=== PATIENT | female | born 1935 | race Caucasian/White ===

== ENCOUNTER 2017-12-07 12:55 | Outpatient (CLI) | payer MEDICARE ==
[2017-12-07 15:22] LABS: Bilirubin Negative (Negative); Blood, Urine Negative (Negative); Clarity CLEAR (Clear); Glucose, Urine (Dipstick) Negative (Negative); Leukocyte Negative (Negative); Nitrite Negative (Negative); Protein, Urine (Dipstick) Negative (Neg-Trace); Specific Gravity, Urine 1.011 (1.002-1.036); Urobilinogen 0.2 mg/dL (0.2-1.0); pH, Urine 6.5 (5.0-9.0)
[2017-12-07 15:25] LABS: Bacteria/HPF None Seen HPF (None Seen); Hyaline Casts/LPF 0-3 HYALINE CAST LPF (0-3 Hyaline); RBC/HPF 0-3 HPF (0-3); Squamous Epithelial 0-3 HPF (0-3); WBC/HPF 0-3 HPF (0-3)
== END 2017-12-07 12:56 | disposition home or self-care (01) ==
LOC: LABBT 12:55
PROVIDERS: ATTEND Orthopaedic Surgery
DX: Z01.818 Encounter for other preprocedural examination (principal); M17.11 Unilateral primary osteoarthritis, right knee
CPT/HCPCS: 81001; 87081; 87086; 93005; 93010

== ENCOUNTER 2017-12-13 10:26 | Outpatient (CLI) | payer MEDICARE ==
[2017-12-13 12:22] LABS: #Eosinphils 0.1 thou/uL (0.0-0.7); #Lymphocytes 2.2 thou/uL (1.20-3.40); #Monocytes 0.4 thou/uL (0.11-0.59); #Neutrophils 3.3 thou/uL (1.40-6.50); %Basophils 0.4 % (0.0-1.0); %Eosinophils 1.1 % (0.0-10.0); %Monocytes 6.9 % (0.0-10.0); %Neutrophils 54.6 % (42.0-75.0); Hemoglobin 12.4 g/dL (12.0-16.0); Mean Corpuscular Hemoglobin 30.5 pg (27.0-31.0); Mean Corpuscular Volume 92.5 fL (78.0-98.0); Mean Platelet Volume 7.7 fL (7.4-10.4); Platelet Count 311 thou/uL (130-400); RBC Distribution Width 12.2 % (11.5-14.5); Red Blood Cell (RBC) Count 4.05 mill/uL (4.20-5.40)
[2017-12-13 12:29] LABS: Prothrombin Time 12.9 SEC (12.0-14.7)
[2017-12-13 12:34] LABS: Anion Gap 14 mmol/L (10-20); BUN (Urea Nitrogen) 23 mg/dL (9.8-20.1); Calc. Creatinine Clearance 0 mL/min (70-130); Calcium 9.8 mg/dL (7.8-10.44); Carbon Dioxide 27 mmol/L (23-31); Chloride 102 mmol/L (98-107); Estimated GFR-MDRD 72; Glucose 181 mg/dL (83-110); Potassium 3.4 mmol/L (3.5-5.1); Sodium 140 mmol/L (136-145)
== END 2017-12-13 10:27 | disposition home or self-care (01) ==
LOC: LABBT 10:26
PROVIDERS: ATTEND Orthopaedic Surgery
DX: Z01.818 Encounter for other preprocedural examination (principal); M17.11 Unilateral primary osteoarthritis, right knee
CPT/HCPCS: 80048; 85025; 85610; 86850; 86870; 86900; 86901

== ENCOUNTER 2017-12-18 06:29 | Inpatient (IN) | payer MEDICARE ==
[2017-12-07 13:19] VITALS: BMI 29.2
--- NOTE | 2017-12-14 00:54 | HP ---
HISTORY OF PRESENT ILLNESS: The patient is an 82-year-old female with a long history of progressive degenerative arthritis of both knees, left much greater than right, unresponsive to conservative colton tment including rest, restriction of activities, anti-inflammatory medications, previous cortisone in jections. Pain is now interfering with day to day activities, including walking, getting dressed, an d sleeping. PAST MEDICAL HISTORY: Patient has history of hypertension, diabetes, urinary frequency, depression a nd previous carpal tunnel release. She has also had previous hysterectomy and previous back surgery. ALLERGIES: She is allergic to STATIN DRUGS. FAMILY HISTORY: Otherwise unremarkable. SOCIAL HISTORY: Otherwise unremarkable. REVIEW OF SYSTEMS: Otherwise unremarkable. CURRENT MEDICATIONS: Hydrochlorothiazide, amlodipine, hydrocodone, losartan, escitalopram, cyclobenz aprine, Zofran, iron, metformin and eszopiclone. PHYSICAL EXAMINATION: GENERAL: This is an elderly short-statured female in no acute distress. HEENT: Unremarkable. NECK: Supple. CHEST: Clear. HEART: Regular rate and rhythm. ABDOMEN: Soft, nontender. PELVIC/RECTAL/BREAST: Deferred. EXTREMITIES: Pertinent findings related to left knee, there is puffiness but no effusion. There is mild varus. There is tenderness and crepitus over the medial joint line. There is a left antalgic g ait. Pulses are 1+. Neurovascular exam is intact. Range of motion is 0-120 degrees. LABORATORY AND X-RAY FINDINGS: X-rays of the left knee reveal bone on bone collapse immediately with progression from previous x-rays. There are similar findings on the right knee, but not as severe. IMPRESSION: 1. Degenerative arthritis, both knees, left greater than right. 2. Adult-onset diabetes. 3. Hypertension. PLAN: Left total knee replacement. The nature of the surgery, length of recovery, and potential com plications such as infection, loss of motion, incomplete relief, delayed wound healing, neurovascular injury, thromboembolic phenomena, possible transfusion, and need for revision have been discussed in detail.
[2017-12-18] MEDS ORDERED: Fentanyl 100 MCG/2 ML VIAL ONE ×5 (07:23→14:14)
[2017-12-18] MEDS ORDERED: Midazolam HCl 2 mg/2 ml Vial ONE (07:23)
[2017-12-18] MEDS ORDERED: Ropivacaine 0.2% HCl/PF 20 ML ONE (07:23)
[2017-12-18] MEDS ORDERED: Sodium Chloride 0.9% 100 ML ONE (07:37)
[2017-12-18] MEDS ORDERED: CEFAZOLIN/Water 2 GM/20 ML SYRINGE ONE (07:38)
[2017-12-18] MEDS ORDERED: traMADol HCl 50 MG TAB PO PRN ×3 (08:19→14:59)
[2017-12-18] MEDS ORDERED: Ondansetron HCl/PF 4 MG/2 ML Vial IVP PRN ×3 (08:19→14:00)
[2017-12-18] MEDS ORDERED: Promethazine HCl 25 MG/ML VIAL IM PRN ×3 (08:19→14:00)
[2017-12-18] MEDS ORDERED: HYDROcodone/Acetaminophen 10/325 mg Tablet PO PRN ×4 (08:19→14:59)
[2017-12-18] MEDS ORDERED: Bupivacaine 0.5% 50 ML in Sodium Chloride 0.9% 50 ML NERVE BLCK SCH (08:19)
[2017-12-18] MEDS ORDERED: Zolpidem Tartrate 5 MG TAB PO PRN ×3 (08:19→14:59)
[2017-12-18] MEDS ORDERED: Fentanyl 100 MCG/2 ML VIAL IV PRN (08:20)
[2017-12-18] MEDS ORDERED: Bupivacaine HCl 0.25%/Epi 0.0005/PF 10 ML VIAL FS ONE (09:30)
[2017-12-18] MEDS ORDERED: Promethazine HCl 25 MG/ML VIAL SLOW IVP PRN ×2 (11:56→14:59)
[2017-12-18] MEDS ORDERED: Tranexamic Acid 1,000 MG in Sodium Chloride 0.9% 100 ML IVPB SCH ×2 (12:00→14:59)
[2017-12-18] MEDS ORDERED: Bupivacaine 0.5% 10 ML VIAL ONE (12:17)
--- NOTE | 2017-12-18 12:27 | OP ---
DATE OF PROCEDURE: 12/18/2017 SURGEON: Primitivo Cabrales M.D. BRUSH HOLDER ASSEMBLER: KAYKAY Titus. ANESTHESIA: General plus femoral sciatic nerve blocks. PREOPERATIVE DIAGNOSIS: Degenerative arthritis, left knee. POSTOPERATIVE DIAGNOSIS: Degenerative arthritis, left knee. PROCEDURES: Left total knee replacement was with computer-assisted navigation with cemented WhiteFence Triathlon components (#3 femoral component, #3 universal tibial baseplate with 11 mm CS plastic inser t, and A29 all plastic patellar component). NARRATIVE REPORT: After satisfactory anesthesia was induced in supine position, sequential compressi on device was placed on the non-operative leg throughout the procedure. The left leg was then preppe d and draped in routine sterile fashion. The left leg was elevated, exsanguinated with an Esmarch ba ndage, and the tourniquet inflated to 250 mmHg. A gently curved medial parapatellar incision was mad e, carried down to subcutaneous tissues. Bleeding points controlled with cautery. After 2-3 minutes it appeared that the tourniquet pressure was not adequate cause of bleeding and the tourniquet was r eleased. The leg re-exsanguinated and the tourniquet reinflated to 300 mmHg. Medial parapatellar ar throtomy was performed, patella dislocated laterally. Portions of fat pad were excised for exposure. There was marked degenerative arthritis of the knee, especially medially, with large areas of expos ed bone. Meniscal remnants and osteophytes were removed. Using the WhiteFence pinless navigation [place] m and the appropriate guides, the distal femoral and proximal tibial articular surfaces were excised to accept the trial components. It was felt that a #3 femoral component, #3 universal tibial basepla te with 11 mm CS plastic insert gave appropriate size, fit, stability, and correction of the preopera tive deformity. The trial components were removed. The knee was copiously irrigated with pulsatile lavage and bony surfaces thoroughly cleaned and dried. The permanent components were then cemented i n a single stage using 1 package of cement premixed with 1 gram of tobramycin powder. Excess cement was removed. There was again good fit and stability of the components. The knee was copiously irrig ated. The medial retinaculum and quadriceps mechanism was closed with interrupted #2 Vicryl and a ru nning #2 Quill. Subcutaneous tissues were closed with a running 0 Quill suture and the skin closed w ith running subcuticular 3-0 Monoderm and SurgiSeal skin adhesive. Sterile bulky compressive dressin g was applied and the tourniquet released after total time of 76 minutes. The foot promptly pinked u p. Sequential compression device was placed on the operated leg and she was awakened, taken to recov clair room in stable condition. There were no apparent intraoperative complications. The estimated bl ood loss was less than 100 mL.
[2017-12-18] MEDS ORDERED: Ketorolac Tromethamine 30 MG/ML VIAL ONE (13:02)
[2017-12-18] MEDS ORDERED: Ropivacaine 0.5% HCl/PF (150 MG/30 ML VIAL) ONE (13:27)
[2017-12-18] MEDS ORDERED: Ketorolac Tromethamine 30 MG/ML VIAL IVP SCH ×2 (13:30→14:59)
[2017-12-18] MEDS ORDERED: Naloxone HCl 0.4 mg/ml Vial IV PRN (14:00)
[2017-12-18] MEDS ORDERED: fentaNYL Citrate/PF 2,000 MCG in Sodium Chloride 0.9% 60 ML IV PRN (14:00)
[2017-12-18] MEDS ORDERED: diphenhydrAMINE 50 MG/ML VIAL IM/IV PRN (14:00)
[2017-12-18] MEDS ORDERED: diphenhydrAMINE 25 MG CAP PO PRN ×2 (14:00→14:59)
--- NOTE | 2017-12-18 14:14 | RAD ---
2 VIEWS LEFT KNEE: Date: 12/18/17 COMPARISON: None. HISTORY: Evaluate knee following total knee arthroplasty. FINDINGS: There is postoperative gas and fluid in the suprapatellar bursa and anterior to the distal left femur and proximal left tibia. There is a total knee arthroplasty present. No evidence for acute fracture or dislocation. No hardware failure. IMPRESSION: Evidence of recent left total knee arthroplasty. POS: [facility]
[2017-12-18] MEDS ORDERED: Loperamide HCl 2 MG CAP PO PRN (14:56)
[2017-12-18] MEDS ORDERED: Chloraseptic Spray 180 ml Bottle PO PRN (14:56)
[2017-12-18] MEDS ORDERED: Artificial Tears 18 DROP/0.9 ML EA EYE PRN (14:56)
[2017-12-18] MEDS ORDERED: Diabetic Tussin 200 MG/10 ML UDCUP PO PRN (14:56)
[2017-12-18] MEDS ORDERED: Famotidine 20 MG TAB PO PRN (14:56)
[2017-12-18] MEDS ORDERED: Milk Of Magnesia 30 ML UDCUP PO PRN (14:56)
[2017-12-18] MEDS ORDERED: Eucerin (Mineral Oil/Petrolatum,White) 30 gm Jar TOP PRN (14:56)
[2017-12-18] MEDS ORDERED: Mag-Al 1200 mg/1200 mg/30 ML UDCUP PO PRN (14:56)
[2017-12-18] MEDS ORDERED: hydrALAZINE 20 MG/ML VIAL SLOW IVP PRN (14:56)
[2017-12-18] MEDS ORDERED: Senokot 8.6 MG TAB PO PRN (14:56)
[2017-12-18] MEDS ORDERED: HumaLOG 300 UNITS/3 ML VIAL SC PRN ×2 (14:57)
[2017-12-18] MEDS ORDERED: Dextrose 50% Abboject 50 ML SYRINGE SLOW IVP PRN (14:57)
[2017-12-18] MEDS ORDERED: Dextrose 5% in Water 1,000 ML IV PRN (14:57)
[2017-12-18] MEDS ORDERED: Vancomycin HCl 1 GM in Premix Bag 1 BAG IVPB SCH ×2 (14:59→20:00)
[2017-12-18] MEDS ORDERED: Cyclobenzaprine 10 MG TAB PO PRN (14:59)
[2017-12-18] MEDS ORDERED: Fentanyl 100 MCG/2 ML VIAL SLOW IVP PRN ×2 (14:59)
[2017-12-18] MEDS ORDERED: Lidocaine 1% PF 5 ML VIAL ONE (15:01)
[2017-12-18] MEDS ORDERED: Ondansetron HCl/PF 4 MG/2 ML Vial ONE (15:01)
[2017-12-18] MEDS ORDERED: PROPOFOL 200 MG/20 ML VIAL ONE (15:01)
--- NOTE | 2017-12-18 15:02 | PDOC.PN ---
- Subjective Encounter Start Date: 12/18/17 Encounter Start Time: 14:00 -: old records requested/rev Patient seen and examined. her pain is not well controlled, she is on SURGICAL CONSULTANT. No overnight events - Objective Resuscitation Status: Resuscitation Status FULL:Full Resuscitation MAR Reviewed: Yes Vital Signs & Weight: Weight Weight 145 lb Additional Labs: Accuchecks 12/18/17 08:28 POC Glucose 134 H Radiology Reviewed by me: Yes (knee xray) Phys Exam - Physical Examination Constitutional: NAD HEENT: PERRLA, moist MMs, sclera anicteric Neck: no JVD, supple Respiratory: no wheezing, no rales, no rhonchi Cardiovascular: RRR, no significant murmur, no rub Gastrointestinal: soft, non-tender, no distention, positive bowel sounds Musculoskeletal: no edema, pulses present LEFT KNEE WITH DRESSING, NERVE BLOCK+ Neurological: non-focal, normal sensation, moves all 4 limbs Lymphatic: no nodes Psychiatric: normal affect, A&O x 3 Skin: no rash, normal turgor Dx/Plan (1) Status post total left knee replacement Code(s): Z96.652 - PRESENCE OF LEFT ARTIFICIAL KNEE JOINT Status: Acute (2) Diabetes type 2, controlled Code(s): E11.9 - TYPE 2 DIABETES MELLITUS WITHOUT COMPLICATIONS Status: Chronic (3) GERD (gastroesophageal reflux disease) Code(s): K21.9 - GASTRO-ESOPHAGEAL REFLUX DISEASE WITHOUT ESOPHAGITIS Status: Chronic (4) Hypertension Code(s): I10 - ESSENTIAL (PRIMARY) HYPERTENSION Status: Chronic (5) Osteoarthritis Code(s): M19.90 - UNSPECIFIED OSTEOARTHRITIS, UNSPECIFIED SITE Status: Chronic - Plan cont current plan of care, plan discussed w/ family, PT/OT * continue nerve block as per anesthesia * pain control with pain meds * continue PT[facility] * selected home medication reconciled * aspirin for DVT prophylaxis * protonix for GI prophylaxis. * code status- Full code * medication reviewed as below * symptomatic treatment * will monitor medical problems * hyperglycemia protocol orders * continue SURGICAL CONSULTANT Review of Systems - Review of Systems Eyes: negative: Pain, Vision Change, Conjunctivae Inflammation, Eyelid Inflammation, Redness, Other ENT: negative: Ear Pain, Ear Discharge, Nose Pain, Nose Discharge, Nose Congestion, Mouth Pain, Mouth Swelling, Throat Pain, Throat Swelling, Other Respiratory: negative: Cough, Dry, Shortness of Breath, Hemoptysis, SOB with Excertion, Pleuritic Pain, Sputum, Wheezing Cardiovascular: negative: chest pain, palpitations, orthopnea, paroxysmal nocturnal dyspnea, edema, light headedness, other Gastrointestinal: negative: Nausea, Vomiting, Abdominal Pain, Diarrhea, Constipation, Melena, Hematochezia, Other Genitourinary: negative: Dysuria, Frequency, Incontinence, Hematuria, Retention , Other Musculoskeletal: negative: Neck Pain, Shoulder Pain, Arm Pain, Back Pain, Hand Pain, Leg Pain, Foot Pain, Other Skin: negative: Rash, Lesions, Pb, Bruising, Other - Medications/Allergies Allergies/Adverse Reactions: Allergies Allergy/AdvReac Type Severity Reaction Status Date / Time sertraline Allergy Nausea Verified 12/07/17 13:20 Medications: Current Medications Acetaminophen (Tylenol) 650 mg PO Q4H PRN PRN Reason: Headache/Fever or Mild Pain Acetaminophen (Tylenol) 650 mg PO Q4H PRN PRN Reason: DELUNA/ T > 101F; Mild Pain (1-3) Hydrocodone Bitart/Acetaminophen ([place] 10/325) 1 tab PO Q4H PRN PRN Reason: Moderate Pain (4-6) Hydrocodone Bitart/Acetaminophen ([place] 10/325) 2 tab PO Q4H PRN PRN Reason: Severe Pain (7-10) Al Hydroxide/Mg Hydroxide (Maalox) 15 ml PO Q4H PRN PRN Reason: Heartburn or Indigestion Amlodipine Besylate (Norvasc) 5 mg PO DAILY [facility] Artificial Tears (Tears Naturale) 0 drop EA EYE PRN PRN PRN Reason: Dry Eyes Aspirin (Ecotrin) 81 mg PO BID [facility] Cefazolin Sodium (Ancef) 2 gm SLOW IVP Q8H [facility] Stop: 12/18/17 23:00 Cyclobenzaprine HCl (Flexeril) 5 mg PO PRN PRN PRN Reason: Muscle Spasm Dextrose/Water (Dextrose 50%) 25 gm SLOW IVP PRN PRN PRN Reason: Hypoglycemia Diphenhydramine HCl (Benadryl) 25 mg IM/IV Q3H PRN PRN Reason: Itching Diphenhydramine HCl (Benadryl) 25 mg PO Q3H PRN PRN Reason: Itching Diphenhydramine HCl (Benadryl) 25 mg PO Q6H PRN PRN Reason: Itching Famotidine (Pepcid) 20 mg PO BIDPRN PRN PRN Reason: Heartburn or Indigestion Fentanyl (Sublimaze) 50 mcg SLOW IVP Q30MIN PRN PRN Reason: Moderate Pain (4-6) Fentanyl (Sublimaze) 100 mcg SLOW IVP Q1H PRN PRN Reason: Severe Pain (7-10) Ferrous Gluconate (Fergon) 324 mg PO BID [facility] Glucagon (Glucagon) 1 mg IM PRN PRN PRN Reason: Hypoglycemia Guaifenesin (Robitussin Sf) 200 mg PO Q4H PRN PRN Reason: Cough Hydralazine HCl (Apresoline) 10 mg SLOW IVP Q4H PRN PRN Reason: Systolic BP > 180 Hydrochlorothiazide (Hydrochlorothiazide) 25 mg PO DAILY [facility] Fentanyl Citrate 2,000 mcg/ (Sodium Chloride) 100 mls @ 0 mls/hr IV INF PRN; As Directed PRN Reason: Pain Acetaminophen 1,000 mg/ Device 100 mls @ 400 mls/hr IVPB Q6HR [facility] Stop: 12/19/17 18:01 Dextrose/Water (D5w) 1,000 mls @ 0 mls/hr IV .Q0M PRN; As Directed PRN Reason: Hypoglycemia Sodium Chloride (Normal Saline 0.9%) 1,000 mls @ 100 mls/hr IV .Q10H [facility] Tranexamic Acid 1,000 mg/ (Sodium Chloride) 110 mls @ 200 mls/hr IVPB ONE [facility] Vancomycin HCl 1 gm/ Device 200 mls @ 200 mls/hr IVPB ONE [facility] Stop: 12/18/17 15:58 Insulin Human Lispro (Humalog) 0 units SC .MODERATE SLIDING SC PRN PRN Reason: Moderate Correctional Scale Insulin Human Lispro (Humalog) 0 units SC .BEDTIME SLIDING SC PRN PRN Reason: Bedtime Correctional Scale Iron/Minerals/Multivitamins (Theragran M) 1 tab PO DAILY [facility] Ketorolac Tromethamine (Toradol) 15 mg IVP Q6H PRN PRN Reason: Mild-Moderate Pain (1-5) Stop: 12/23/17 19:01 Ketorolac Tromethamine (Toradol) 15 mg IVP NOW [facility] Stop: 12/18/17 15:30 Ketorolac Tromethamine (Toradol) 15 mg IVP Q8HR [facility] Stop: 12/20/17 15:00 Loperamide HCl (Imodium) 2 mg PO PRN PRN PRN Reason: Diarrhea/Loose Stools Magnesium Hydroxide (Milk Of Magnesium) 30 ml PO DAILYPRN PRN PRN Reason: Constipation Metformin HCl (Glucophage) 500 mg PO BID-WM [facility] Mineral Oil/White Petrolatum (Eucerin Cream) 0 gm TOP BIDPRN PRN PRN Reason: Dry Skin Naloxone HCl (Narcan) 0.2 mg IV Q5MIN PRN PRN Reason: RR <8 or pt obtun/unarousable Non-Formulary Medication (Losartan Potassium [Cozaar]) 50 mg PO HS [facility] Non-Formulary Medication (Omeprazole [Omeprazole]) 40 mg PO DAILY [facility] Ondansetron HCl (Zofran) 4 mg IVP Q6H PRN PRN Reason: Nausea/Vomiting Ondansetron HCl (Zofran) 4 mg IVP Q6H PRN PRN Reason: Nausea/Vomiting Phenol (Chloraseptic [place] 180 Ml Bot) 0 ml PO PRN PRN PRN Reason: Sore Throat Promethazine HCl (Phenergan) 12.5 mg IM Q4H PRN PRN Reason: Nausea/Vomiting Promethazine HCl (Phenergan) 12.5 mg SLOW IVP Q4H PRN PRN Reason: Nausea/Vomiting Senna (Senokot) 2 tab PO HSPRN PRN PRN Reason: Constipation Senna/Docusate Sodium (Senokot S) 2 tab PO BID [facility] Sodium Chloride (Flush - Normal Saline) 10 ml IVF PRN PRN PRN Reason: Saline Flush Tramadol HCl (Ultram) 100 mg PO Q6H PRN PRN Reason: Mild Pain (1-3) Zolpidem Tartrate (Ambien) 5 mg PO HSPRN PRN PRN Reason: Insomnia Zolpidem Tartrate (Ambien) 5 mg PO HSPRN PRN PRN Reason: Insomnia History of Present Illnes - History of Present Illness Reason for Visit: medical management History of Present Illness: left total knee replacement - Past Medical History Cardiac: HTN Gastrointestinal: GERD Musculoskeletal: Chronic low back pain, Osteoarthritis Endocrine: Diabetes - Past Surgical History Past Surgical History: Appendectomy, Breast Biopsy, Cataract Removal, Total Knee Replacement - Past Family History Family History: None - Past Social History Smoke: No Alcohol: None Drugs: None Lives: With Family
[2017-12-18] MEDS ORDERED: Hydrochlorothiazide 25 MG TAB PO SCH (15:45)
[2017-12-18] MEDS ORDERED: Aspirin 81 mg Enteric Coated Tablet PO SCH (15:45)
[2017-12-18] MEDS ORDERED: Amlodipine 5 MG TAB PO SCH (15:45)
[2017-12-18] MEDS: Sodium Chloride 0.9% 1,000 ML IV SCH ×2 (15:52→23:05)
[2017-12-18] MEDS: metFORMIN 500 MG TAB PO SCH (17:27)
[2017-12-18] MEDS: Acetaminophen 1,000 MG in Premix Bag 1 BAG IVPB SCH ×2 (18:55→23:05)
[2017-12-18] MEDS: CEFAZOLIN/Water 2 GM/20 ML SYRINGE SLOW IVP SCH (18:55)
[2017-12-18] MEDS ORDERED: Ketorolac Tromethamine 30 MG/ML VIAL IVP PRN (19:00)
[2017-12-18] MEDS: Aspirin 81 mg Enteric Coated Tablet PO SCH (20:33)
[2017-12-18] MEDS: Ondansetron HCl/PF 4 MG/2 ML Vial IVP PRN (20:34)
[2017-12-18] MEDS: Losartan 25 MG TAB PO SCH (20:34)
[2017-12-19] MEDS: CEFAZOLIN/Water 2 GM/20 ML SYRINGE SLOW IVP SCH (02:03)
[2017-12-19] MEDS: Acetaminophen 1,000 MG in Premix Bag 1 BAG IVPB SCH ×3 (05:02→19:10)
[2017-12-19 06:37] LABS: Hemoglobin 10.7 g/dL (12.0-16.0); Mean Corpuscular HGB CONC 35.2 g/dL (32.0-36.0); Mean Corpuscular Hemoglobin 32.3 pg (27.0-31.0); Mean Corpuscular Volume 91.7 fL (78.0-98.0); Mean Platelet Volume 7.4 fL (7.4-10.4); Platelet Count 305 thou/uL (130-400); RBC Distribution Width 11.9 % (11.5-14.5); Red Blood Cell (RBC) Count 3.32 mill/uL (4.20-5.40); White Blood Cell (WBC) Count 9.8 thou/uL (4.8-10.8)
[2017-12-19] MEDS ORDERED: Calcium Carbonate 500 MG ChewTAB PO PRN (08:13)
[2017-12-19] MEDS: metFORMIN 500 MG TAB PO SCH ×2 (08:51→19:11)
[2017-12-19] MEDS: Ferrous Gluconate 324 MG TAB PO SCH ×2 (08:55→19:11)
[2017-12-19] MEDS: Ondansetron HCl/PF 4 MG/2 ML Vial IVP PRN (08:57)
[2017-12-19] MEDS: Aspirin 81 mg Enteric Coated Tablet PO SCH ×2 (09:05→20:29)
[2017-12-19] MEDS: Multivitamin W/ Minerals 1 TAB PO SCH (09:06)
[2017-12-19] MEDS: Senokot S 8.6-50 MG TAB PO SCH ×2 (09:06→20:30)
[2017-12-19] MEDS: Amlodipine 5 MG TAB PO SCH (09:06)
[2017-12-19] MEDS: Hydrochlorothiazide 25 MG TAB PO SCH (09:06)
[2017-12-19] MEDS: Sodium Chloride 0.9% 1,000 ML IV SCH ×2 (09:15→20:33)
[2017-12-19] MEDS: Bupivacaine 0.5% 50 ML in Sodium Chloride 0.9% 50 ML NERVE BLCK SCH ×2 (10:52→23:37)
--- NOTE | 2017-12-19 11:11 | PDOC.PN ---
- Subjective Encounter Start Date: 12/19/17 Encounter Start Time: 07:20 Patient seen and examined for medical problem, her pain is controlled with CLINICAL ESTHETICIAN. No overnight events - Objective Resuscitation Status: Resuscitation Status FULL:Full Resuscitation MAR Reviewed: Yes Vital Signs & Weight: Vital Signs (12 hours) Temp Pulse Resp BP Pulse Ox 12/19/17 09:06 92 12/19/17 07:56 98.8 F 92 18 94 L 12/19/17 04:00 98.8 F 92 18 128/66 94 L 12/18/17 23:28 98.3 F 80 16 121/71 93 L Weight Weight 145 lb I&O: 12/18/17 12/19/17 12/20/17 06:59 06:59 06:59 Intake Total 2190 Output Total 2950 Balance -760 Result Diagrams: 12/19/17 05:58 Additional Labs: Accuchecks 12/19/17 12/18/17 06:36 15:44 POC Glucose 146 H 164 H Phys Exam - Physical Examination Constitutional: NAD HEENT: PERRLA, moist MMs, sclera anicteric Neck: no JVD, supple Respiratory: no wheezing, no rales, no rhonchi Cardiovascular: RRR, no significant murmur, no rub Gastrointestinal: soft, non-tender, no distention, positive bowel sounds Musculoskeletal: no edema, pulses present left knee with dressing, nerve block Neurological: non-focal, normal sensation Lymphatic: no nodes Psychiatric: normal affect, A&O x 3 Skin: no rash, normal turgor Dx/Plan (1) Status post total left knee replacement Code(s): Z96.652 - PRESENCE OF LEFT ARTIFICIAL KNEE JOINT Status: Acute (2) Diabetes type 2, controlled Code(s): E11.9 - TYPE 2 DIABETES MELLITUS WITHOUT COMPLICATIONS Status: Chronic (3) GERD (gastroesophageal reflux disease) Code(s): K21.9 - GASTRO-ESOPHAGEAL REFLUX DISEASE WITHOUT ESOPHAGITIS Status: Chronic (4) Hypertension Code(s): I10 - ESSENTIAL (PRIMARY) HYPERTENSION Status: Chronic (5) Osteoarthritis Code(s): M19.90 - UNSPECIFIED OSTEOARTHRITIS, UNSPECIFIED SITE Status: Chronic - Plan cont current plan of care, plan discussed w/ family, PT/OT * continue nerve block as per anesthesia * pain control with pain meds and transportation agent * continue PT/OT as per [facility] protocol treatment * aspirin for DVT prophylaxis * protonix as needed for GI prophylaxis. * medication reviewed as below * symptomatic treatment * medical problems are stable * discharge per primary team Review of Systems - Review of Systems Eyes: negative: Pain, Vision Change, Conjunctivae Inflammation, Eyelid Inflammation, Redness, Other ENT: negative: Ear Pain, Ear Discharge, Nose Pain, Nose Discharge, Nose Congestion, Mouth Pain, Mouth Swelling, Throat Pain, Throat Swelling, Other Respiratory: negative: Cough, Dry, Shortness of Breath, Hemoptysis, SOB with Excertion, Pleuritic Pain, Sputum, Wheezing Cardiovascular: negative: chest pain, palpitations, orthopnea, paroxysmal nocturnal dyspnea, edema, light headedness, other Gastrointestinal: negative: Nausea, Vomiting, Abdominal Pain, Diarrhea, Constipation, Melena, Hematochezia, Other Genitourinary: negative: Dysuria, Frequency, Incontinence, Hematuria, Retention , Other Musculoskeletal: negative: Neck Pain, Shoulder Pain, Arm Pain, Back Pain, Hand Pain, Leg Pain, Foot Pain, Other Skin: negative: Rash, Lesions, Pb, Bruising, Other - Medications/Allergies Allergies/Adverse Reactions: Allergies Allergy/AdvReac Type Severity Reaction Status Date / Time sertraline Allergy Nausea Verified 12/07/17 13:20 Medications: Current Medications Acetaminophen (Tylenol) 650 mg PO Q4H PRN PRN Reason: DELUNA/ T > 101F; Mild Pain (1-3) Al Hydroxide/Mg Hydroxide (Maalox) 15 ml PO Q4H PRN PRN Reason: Heartburn or Indigestion Amlodipine Besylate (Norvasc) 5 mg PO DAILY REPLACED [facility] Last Admin: 12/19/17 09:06 Dose: 5 mg Artificial Tears (Tears Naturale) 0 drop EA EYE PRN PRN PRN Reason: Dry Eyes Aspirin (Ecotrin) 81 mg PO BID [facility]PLACED BY [facility] Last Admin: 12/19/17 09:05 Dose: 81 mg Calcium Carbonate (Tums) 1,000 mg PO Q4H PRN PRN Reason: Heartburn or Indigestion Last Admin: 12/19/17 08:51 Dose: 1,000 mg Cyclobenzaprine HCl (Flexeril) 5 mg PO DAILYPRN PRN PRN Reason: Muscle Spasm Dextrose/Water (Dextrose 50%) 25 gm SLOW IVP PRN PRN PRN Reason: Hypoglycemia Diphenhydramine HCl (Benadryl) 25 mg IM/IV Q3H PRN PRN Reason: Itching Diphenhydramine HCl (Benadryl) 25 mg PO Q3H PRN PRN Reason: Itching Famotidine (Pepcid) 20 mg PO BIDPRN PRN PRN Reason: Heartburn or Indigestion Ferrous Gluconate (Fergon) 324 mg PO BID-[facility] Last Admin: 12/19/17 08:55 Dose: 324 mg Glucagon (Glucagon) 1 mg IM PRN PRN PRN Reason: Hypoglycemia Guaifenesin (Robitussin Sf) 200 mg PO Q4H PRN PRN Reason: Cough Hydralazine HCl (Apresoline) 10 mg SLOW IVP Q4H PRN PRN Reason: Systolic BP > 180 Hydrochlorothiazide (Hydrochlorothiazide) 25 mg PO DAILY REPLACED BY [facility] Last Admin: 12/19/17 09:06 Dose: 25 mg Fentanyl Citrate 2,000 mcg/ (Sodium Chloride) 100 mls @ 0 mls/hr IV INF PRN; As Directed PRN Reason: Pain Acetaminophen 1,000 mg/ Device 100 mls @ 400 mls/hr IVPB Q6HR REPLACED BY [facility] Stop: 12/19/17 18:01 Last Admin: 12/19/17 05:02 Dose: 100 mls Dextrose/Water (D5w) 1,000 mls @ 0 mls/hr IV .Q0M PRN; As Directed PRN Reason: Hypoglycemia Sodium Chloride (Normal Saline 0.9%) 1,000 mls @ 100 mls/hr IV .Q10H REPLACED BY [facility] Last Admin: 12/19/17 09:15 Dose: Not Given Bupivacaine HCl 50 ml/ Sodium (Chloride) 100 mls @ 0 mls/hr NERVE BLCK INF REPLACED BY [facility] PRN Reason: As Directed Last Admin: 12/19/17 10:52 Dose: 100 mls Insulin Human Lispro (Humalog) 0 units SC .MODERATE SLIDING SC PRN PRN Reason: Moderate Correctional Scale Insulin Human Lispro (Humalog) 0 units SC .BEDTIME SLIDING SC PRN PRN Reason: Bedtime Correctional Scale Iron/Minerals/Multivitamins (Theragran M) 1 tab PO DAILY [facility]PLACED [facility] Last Admin: 12/19/17 09:06 Dose: 1 tab Ketorolac Tromethamine (Toradol) 15 mg IVP Q6H PRN PRN Reason: Mild-Moderate Pain (1-5) Stop: 12/23/17 19:01 Loperamide HCl (Imodium) 2 mg PO PRN PRN PRN Reason: Diarrhea/Loose Stools Losartan Potassium (Cozaar) 50 mg PO [facility] Last Admin: 12/18/17 20:34 Dose: 50 mg Magnesium Hydroxide (Milk Of Magnesium) 30 ml PO DAILYPRN PRN PRN Reason: Constipation Metformin HCl (Glucophage) 500 mg PO BID-[facility] Last Admin: 12/19/17 08:51 Dose: 500 mg Mineral Oil/White Petrolatum (Eucerin Cream) 0 gm TOP BIDPRN PRN PRN Reason: Dry Skin Naloxone HCl (Narcan) 0.2 mg IV Q5MIN PRN PRN Reason: RR <8 or pt obtun/unarousable Ondansetron HCl (Zofran) 4 mg IVP Q6H PRN PRN Reason: Nausea/Vomiting Last Admin: 12/19/17 08:57 Dose: 4 mg Pantoprazole Sodium (Protonix) 40 mg PO DAILY REPLACED [facility] Last Admin: 12/19/17 08:52 Dose: 40 mg Phenol (Chloraseptic [place] 180 Ml Bot) 0 ml PO PRN PRN PRN Reason: Sore Throat Promethazine HCl (Phenergan) 12.5 mg IM Q4H PRN PRN Reason: Nausea/Vomiting Promethazine HCl (Phenergan) 12.5 mg SLOW IVP Q4H PRN PRN Reason: Nausea/Vomiting Senna (Senokot) 2 tab PO HSPRN PRN PRN Reason: Constipation Senna/Docusate Sodium (Senokot S) 2 tab PO BID REPLACED BY [facility] Last Admin: 12/19/17 09:06 Dose: 2 tab Sodium Chloride (Flush - Normal Saline) 10 ml IVF PRN PRN PRN Reason: Saline Flush Zolpidem Tartrate (Ambien) 5 mg PO HSPRN PRN PRN Reason: Insomnia
[2017-12-19] MEDS: Losartan 25 MG TAB PO SCH (20:29)
[2017-12-19] MEDS ORDERED: Acetaminophen 325 MG TAB PO PRN ×2 (23:59)
[2017-12-20] MEDS: Senokot S 8.6-50 MG TAB PO SCH ×2 (08:12→22:01)
[2017-12-20] MEDS: Aspirin 81 mg Enteric Coated Tablet PO SCH ×2 (08:13→22:00)
[2017-12-20] MEDS: metFORMIN 500 MG TAB PO SCH ×2 (08:14→19:43)
[2017-12-20] MEDS: Hydrochlorothiazide 25 MG TAB PO SCH (08:14)
[2017-12-20] MEDS: Amlodipine 5 MG TAB PO SCH (08:14)
[2017-12-20] MEDS: Ferrous Gluconate 324 MG TAB PO SCH ×2 (08:14→19:42)
[2017-12-20] MEDS: Sodium Chloride 0.9% 1,000 ML IV SCH ×2 (08:19→16:02)
[2017-12-20] MEDS: Multivitamin W/ Minerals 1 TAB PO SCH (08:25)
--- NOTE | 2017-12-20 10:10 | PDOC.PN ---
- Subjective Encounter Start Date: 12/20/17 Encounter Start Time: 07:50 Patient seen and examined. No new complaints. No overnight events pt has not significant progress after surgery, she prefers to go to rehab if qualify on [employer] for pain control - Objective Resuscitation Status: Resuscitation Status FULL:Full Resuscitation MAR Reviewed: Yes Vital Signs & Weight: Vital Signs (12 hours) Temp Pulse Resp BP BP Pulse Ox 12/20/17 08:24 98.2 F 97 16 149/84 H 94 L 12/20/17 08:14 85 12/20/17 04:40 98.7 F 85 18 163/64 H 92 L 12/19/17 23:45 98.4 F 93 16 133/68 93 L Weight Admit Weight 145 lb Weight 145 lb I&O: 12/19/17 12/20/17 12/21/17 06:59 06:59 06:59 Intake Total 2190 1960 Output Total 2950 1850 Balance -760 110 Result Diagrams: 12/19/17 05:58 Additional Labs: Accuchecks 12/20/17 12/19/17 12/19/17 06:11 21:08 16:10 POC Glucose 135 H 148 H 211 H 12/19/17 11:59 POC Glucose 150 H Phys Exam - Physical Examination Constitutional: NAD HEENT: PERRLA, moist MMs, sclera anicteric Neck: no JVD, supple Respiratory: no wheezing, no rales, no rhonchi Cardiovascular: RRR, no significant murmur, no rub Gastrointestinal: soft, non-tender, no distention, positive bowel sounds Musculoskeletal: no edema, pulses present left knee with dressing, nerve block+ Neurological: non-focal, normal sensation, moves all 4 limbs Psychiatric: normal affect, A&O x 3 Dx/Plan (1) Status post total left knee replacement Code(s): Z96.652 - PRESENCE OF LEFT ARTIFICIAL KNEE JOINT Status: Acute (2) Diabetes type 2, controlled Code(s): E11.9 - TYPE 2 DIABETES MELLITUS WITHOUT COMPLICATIONS Status: Chronic (3) GERD (gastroesophageal reflux disease) Code(s): K21.9 - GASTRO-ESOPHAGEAL REFLUX DISEASE WITHOUT ESOPHAGITIS Status: Chronic (4) Hypertension Code(s): I10 - ESSENTIAL (PRIMARY) HYPERTENSION Status: Chronic (5) Osteoarthritis Code(s): M19.90 - UNSPECIFIED OSTEOARTHRITIS, UNSPECIFIED SITE Status: Chronic - Plan cont current plan of care, plan discussed w/ family, PT/OT, manager social work * continue nerve block as per anesthesia * pain control with pain meds and investigations manager * continue PT/OT as per [facility] protocol treatment * aspirin for DVT prophylaxis * protonix as needed for GI prophylaxis. * medication reviewed as below * symptomatic treatment * medical problems are stable * discharge per primary team * may need rehab. Review of Systems - Review of Systems Eyes: negative: Pain, Vision Change, Conjunctivae Inflammation, Eyelid Inflammation, Redness, Other ENT: negative: Ear Pain, Ear Discharge, Nose Pain, Nose Discharge, Nose Congestion, Mouth Pain, Mouth Swelling, Throat Pain, Throat Swelling, Other Respiratory: negative: Cough, Dry, Shortness of Breath, Hemoptysis, SOB with Excertion, Pleuritic Pain, Sputum, Wheezing Cardiovascular: negative: chest pain, palpitations, orthopnea, paroxysmal nocturnal dyspnea, edema, light headedness, other Gastrointestinal: negative: Nausea, Vomiting, Abdominal Pain, Diarrhea, Constipation, Melena, Hematochezia, Other Genitourinary: negative: Dysuria, Frequency, Incontinence, Hematuria, Retention , Other Musculoskeletal: negative: Neck Pain, Shoulder Pain, Arm Pain, Back Pain, Hand Pain, Leg Pain, Foot Pain, Other Skin: negative: Rash, Lesions, Pb, Bruising, Other - Medications/Allergies Allergies/Adverse Reactions: Allergies Allergy/AdvReac Type Severity Reaction Status Date / Time sertraline Allergy Nausea Verified 12/07/17 13:20 [id number]-[id number] Reductase Allergy Verified 12/20/17 08:12 Inhibitor Medications: Current Medications Acetaminophen (Tylenol) 650 mg PO Q4H PRN PRN Reason: DELUNA/ T > 101F; Mild Pain (1-3) Al Hydroxide/Mg Hydroxide (Maalox) 15 ml PO Q4H PRN PRN Reason: Heartburn or Indigestion Amlodipine Besylate (Norvasc) 5 mg PO DAILY [facility] Last Admin: 12/20/17 08:14 Dose: 5 mg Artificial Tears (Tears Naturale) 0 drop EA EYE PRN PRN PRN Reason: Dry Eyes Aspirin (Ecotrin) 81 mg PO BID [facility] Last Admin: 12/20/17 08:13 Dose: 81 mg Calcium Carbonate (Tums) 1,000 mg PO Q4H PRN PRN Reason: Heartburn or Indigestion Last Admin: 12/19/17 08:51 Dose: 1,000 mg Cyclobenzaprine HCl (Flexeril) 5 mg PO DAILYPRN PRN PRN Reason: Muscle Spasm Dextrose/Water (Dextrose 50%) 25 gm SLOW IVP PRN PRN PRN Reason: Hypoglycemia Diphenhydramine HCl (Benadryl) 25 mg IM/IV Q3H PRN PRN Reason: Itching Diphenhydramine HCl (Benadryl) 25 mg PO Q3H PRN PRN Reason: Itching Famotidine (Pepcid) 20 mg PO BIDPRN PRN PRN Reason: Heartburn or Indigestion Ferrous Gluconate (Fergon) 324 mg PO BID-[facility] Last Admin: 12/20/17 08:14 Dose: 324 mg Glucagon (Glucagon) 1 mg IM PRN PRN PRN Reason: Hypoglycemia Guaifenesin (Robitussin Sf) 200 mg PO Q4H PRN PRN Reason: Cough Hydralazine HCl (Apresoline) 10 mg SLOW IVP Q4H PRN PRN Reason: Systolic BP > 180 Hydrochlorothiazide (Hydrochlorothiazide) 25 mg PO DAILY [facility] Last Admin: 12/20/17 08:14 Dose: 25 mg Fentanyl Citrate 2,000 mcg/ (Sodium Chloride) 100 mls @ 0 mls/hr IV INF PRN; As Directed PRN Reason: Pain Dextrose/Water (D5w) 1,000 mls @ 0 mls/hr IV .Q0M PRN; As Directed PRN Reason: Hypoglycemia Sodium Chloride (Normal Saline 0.9%) 1,000 mls @ 100 mls/hr IV .Q10H [facility] Last Admin: 12/20/17 08:19 Dose: Not Given Bupivacaine HCl 50 ml/ Sodium (Chloride) 100 mls @ 0 mls/hr NERVE BLCK INF [facility] PRN Reason: As Directed Last Admin: 12/19/17 23:37 Dose: 100 mls Insulin Human Lispro (Humalog) 0 units SC .MODERATE SLIDING SC PRN PRN Reason: Moderate Correctional Scale Insulin Human Lispro (Humalog) 0 units SC .BEDTIME SLIDING SC PRN PRN Reason: Bedtime Correctional Scale Iron/Minerals/Multivitamins (Theragran M) 1 tab PO DAILY [facility] Last Admin: 12/20/17 08:25 Dose: 1 tab Ketorolac Tromethamine (Toradol) 15 mg IVP Q6H PRN PRN Reason: Mild-Moderate Pain (1-5) Stop: 12/23/17 19:01 Loperamide HCl (Imodium) 2 mg PO PRN PRN PRN Reason: Diarrhea/Loose Stools Losartan Potassium (Cozaar) 50 mg PO [facility] Last Admin: 12/19/17 20:29 Dose: 50 mg Magnesium Hydroxide (Milk Of Magnesium) 30 ml PO DAILYPRN PRN PRN Reason: Constipation Metformin HCl (Glucophage) 500 mg PO BID-[facility] Last Admin: 12/20/17 08:14 Dose: 500 mg Mineral Oil/White Petrolatum (Eucerin Cream) 0 gm TOP BIDPRN PRN PRN Reason: Dry Skin Naloxone HCl (Narcan) 0.2 mg IV Q5MIN PRN PRN Reason: RR <8 or pt obtun/unarousable Ondansetron HCl (Zofran) 4 mg IVP Q6H PRN PRN Reason: Nausea/Vomiting Last Admin: 12/19/17 08:57 Dose: 4 mg Pantoprazole Sodium (Protonix) 40 mg PO DAILY [facility] Last Admin: 12/20/17 08:13 Dose: 40 mg Phenol (Chloraseptic [place] 180 Ml Bot) 0 ml PO PRN PRN PRN Reason: Sore Throat Promethazine HCl (Phenergan) 12.5 mg IM Q4H PRN PRN Reason: Nausea/Vomiting Promethazine HCl (Phenergan) 12.5 mg SLOW IVP Q4H PRN PRN Reason: Nausea/Vomiting Senna (Senokot) 2 tab PO HSPRN PRN PRN Reason: Constipation Senna/Docusate Sodium (Senokot S) 2 tab PO BID [facility] Last Admin: 12/20/17 08:12 Dose: 2 tab Sodium Chloride (Flush - Normal Saline) 10 ml IVF PRN PRN PRN Reason: Saline Flush Zolpidem Tartrate (Ambien) 5 mg PO HSPRN PRN PRN Reason: Insomnia
--- NOTE | 2017-12-20 11:33 | DIS ---
DATE OF ADMISSION: 12/18/2017 DATE OF DISCHARGE: 12/20/2017 PRIMARY CARE PHYSICIAN: Rosalia Cook M.D. DISCHARGE DISPOSITION: Rehabilitation. PRIMARY DISCHARGE DIAGNOSIS: Left total knee replacement. SECONDARY DISCHARGE DIAGNOSES: Diabetes type 2, gastroesophageal reflux disease, hypertension, osteo arthritis. PRIMARY PROCEDURE/OPERATION: Left total knee replacement. RADIOLOGICAL INVESTIGATION: Knee x-ray. SIGNIFICANT LABORATORY DATA: Hemoglobin 10.7. DISCHARGE MEDICATIONS: The patient will continue all her previous medications, Tylenol 325 mg p.o. q .6 hourly p.r.n., amlodipine 5 mg p.o. daily, Flexeril 5 mg p.o. daily p.r.n., Lunesta 1 mg p.o. at b edtime, folic acid with multivitamin 1 tablet p.o. daily, hydrochlorothiazide 25 mg p.o. daily, [place] 5 one tablet q.6 hourly p.r.n., iron 65 daily, Cozaar 50 mg daily, metformin 500 mg p.o. b.i.d., nap roxen 220 mg b.i.d. p.r.n., omeprazole 40 mg p.o. daily, aspirin 81 mg p.o. b.i.d. for DVT prophylaxi s. CONTRAINDICATIONS: None. CODE STATUS: FULL CODE. INPATIENT CONSULTANTS: Dr. Cabrales was primary while in hospital. [facility] Team was consulted for medica l comanagement. TEST RESULTS PENDING ON DISCHARGE: None. ALLERGIES: ZOLOFT, STATIN. DISCHARGE PLAN: Post hospital, the patient is planned for discharge to rehabilitation/home. HOSPITAL COURSE: An 82-year-old female who was electively admitted by Dr. Cabrales for left total knee replacement for her osteoarthritis. After surgery, the patient was at [facility]. At that i nt, [facility] team was consulted for medical management. Postoperatively, the patient's pain was control led with MEDICAL BILLING COORDINATOR and nerve block. She was given aspirin for DVT prophylaxis. She continued all her prev ious home medication. The patient had marginal improvement by the time of discharge. The patient wa s requesting rehabilitation. If rehabilitation is accepting, then patient probably may be able to go to rehabilitation depending upon approval. Otherwise, the patient is medically stable. We will sign off. The patient is seen and examined at [facility] today. Please see my progress note from today for further detail.
[2017-12-20] MEDS ORDERED: Fentanyl 100 MCG/2 ML VIAL SLOW IVP PRN (12:20)
[2017-12-20] MEDS ORDERED: HYDROcodone/Acetaminophen 7.5/325 mg Tablet PO PRN ×2 (12:20)
[2017-12-20] MEDS ORDERED: HYDROcodone/Acetaminophen 5/325 mg Tablet PO PRN (18:51)
[2017-12-20] MEDS: Losartan 25 MG TAB PO SCH (22:00)
[2017-12-20] MEDS: HYDROcodone/Acetaminophen 5/325 mg Tablet PO PRN (22:17)
[2017-12-21] MEDS: Sodium Chloride 0.9% 1,000 ML IV SCH ×2 (03:32→14:12)
[2017-12-21] MEDS: HYDROcodone/Acetaminophen 5/325 mg Tablet PO PRN ×2 (05:41→11:00)
[2017-12-21] MEDS: Amlodipine 5 MG TAB PO SCH (09:08)
[2017-12-21] MEDS: Multivitamin W/ Minerals 1 TAB PO SCH (09:10)
[2017-12-21] MEDS: Hydrochlorothiazide 25 MG TAB PO SCH (09:10)
[2017-12-21] MEDS: Senokot S 8.6-50 MG TAB PO SCH (09:10)
[2017-12-21] MEDS: Aspirin 81 mg Enteric Coated Tablet PO SCH (09:10)
[2017-12-21] MEDS: Ferrous Gluconate 324 MG TAB PO SCH (09:14)
[2017-12-21] MEDS: metFORMIN 500 MG TAB PO SCH (09:14)
--- NOTE | 2017-12-21 11:38 | PDOC.PN ---
- Subjective Encounter Start Date: 12/21/17 Encounter Start Time: 07:40 Patient seen and examined. No new complaints. No overnight events - Objective Resuscitation Status: Resuscitation Status FULL:Full Resuscitation MAR Reviewed: Yes Vital Signs & Weight: Vital Signs (12 hours) Temp Pulse Resp BP BP BP Pulse Ox 12/21/17 09:08 90 128/66 12/21/17 07:45 98.5 F 90 14 128/64 95 12/21/17 03:48 98.2 F 92 16 140/72 92 L 12/20/17 23:44 99.2 F 94 16 174/68 H 93 L Weight Admit Weight 145 lb Weight 145 lb I&O: 12/20/17 12/21/17 12/22/17 06:59 06:59 06:59 Intake Total 1960 2440 Output Total 1850 Balance 110 2440 Result Diagrams: 12/19/17 05:58 Additional Labs: Accuchecks 12/21/17 12/21/17 12/20/17 11:21 03:37 20:37 POC Glucose 139 H 136 H 174 H 12/20/17 12/20/17 15:30 11:17 POC Glucose 205 H 147 H Phys Exam - Physical Examination Constitutional: NAD HEENT: PERRLA, moist MMs, sclera anicteric Neck: no JVD, supple Respiratory: no wheezing, no rales, no rhonchi Cardiovascular: RRR, no significant murmur, no rub Gastrointestinal: soft, non-tender, no distention, positive bowel sounds Musculoskeletal: no edema, pulses present Neurological: non-focal, normal sensation Psychiatric: normal affect, A&O x 3 Skin: no rash, normal turgor Dx/Plan (1) Status post total left knee replacement Code(s): Z96.652 - PRESENCE OF LEFT ARTIFICIAL KNEE JOINT Status: Acute (2) Diabetes type 2, controlled Code(s): E11.9 - TYPE 2 DIABETES MELLITUS WITHOUT COMPLICATIONS Status: Chronic (3) GERD (gastroesophageal reflux disease) Code(s): K21.9 - GASTRO-ESOPHAGEAL REFLUX DISEASE WITHOUT ESOPHAGITIS Status: Chronic (4) Hypertension Code(s): I10 - ESSENTIAL (PRIMARY) HYPERTENSION Status: Chronic (5) Osteoarthritis Code(s): M19.90 - UNSPECIFIED OSTEOARTHRITIS, UNSPECIFIED SITE Status: Chronic - Plan cont current plan of care, PT/OT * medication reviewed as below * symptomatic treatment * see my discharge summery from yesterday * stable for discharge * discharge medication reconciliation done * pt did not qualify for rehab * now plan for dc to home with home health * will sign off Review of Systems - Review of Systems Eyes: negative: Pain, Vision Change, Conjunctivae Inflammation, Eyelid Inflammation, Redness, Other ENT: negative: Ear Pain, Ear Discharge, Nose Pain, Nose Discharge, Nose Congestion, Mouth Pain, Mouth Swelling, Throat Pain, Throat Swelling, Other Respiratory: negative: Cough, Dry, Shortness of Breath, Hemoptysis, SOB with Excertion, Pleuritic Pain, Sputum, Wheezing Cardiovascular: negative: chest pain, palpitations, orthopnea, paroxysmal nocturnal dyspnea, edema, light headedness, other Gastrointestinal: negative: Nausea, Vomiting, Abdominal Pain, Diarrhea, Constipation, Melena, Hematochezia, Other Genitourinary: negative: Dysuria, Frequency, Incontinence, Hematuria, Retention , Other Musculoskeletal: negative: Neck Pain, Shoulder Pain, Arm Pain, Back Pain, Hand Pain, Leg Pain, Foot Pain, Other - Medications/Allergies Allergies/Adverse Reactions: Allergies Allergy/AdvReac Type Severity Reaction Status Date / Time sertraline Allergy Nausea Verified 12/07/17 13:20 Hxareag-Mpe-Rhx Reductase Allergy Verified 12/20/17 08:12 Inhibitor Medications: Current Medications Acetaminophen (Tylenol) 650 mg PO Q4H PRN PRN Reason: DELUNA/ T > 101F; Mild Pain (1-3) Hydrocodone Bitart/Acetaminophen ([place] 5/325) 1 tab PO Q4H PRN PRN Reason: Pain 1-4 Last Admin: 12/21/17 11:00 Dose: 1 tab Hydrocodone Bitart/Acetaminophen ([place] 5/325) 2 tab PO Q4H PRN PRN Reason: Pain 5-10 Al Hydroxide/Mg Hydroxide (Maalox) 15 ml PO Q4H PRN PRN Reason: Heartburn or Indigestion Amlodipine Besylate (Norvasc) 5 mg PO DAILY [facility] Last Admin: 12/21/17 09:08 Dose: 5 mg Artificial Tears (Tears Naturale) 0 drop EA EYE PRN PRN PRN Reason: Dry Eyes Aspirin (Ecotrin) 81 mg PO BID [facility] Last Admin: 12/21/17 09:10 Dose: 81 mg Calcium Carbonate (Tums) 1,000 mg PO Q4H PRN PRN Reason: Heartburn or Indigestion Last Admin: 12/19/17 08:51 Dose: 1,000 mg Cyclobenzaprine HCl (Flexeril) 5 mg PO DAILYPRN PRN PRN Reason: Muscle Spasm Dextrose/Water (Dextrose 50%) 25 gm SLOW IVP PRN PRN PRN Reason: Hypoglycemia Diphenhydramine HCl (Benadryl) 25 mg IM/IV Q3H PRN PRN Reason: Itching Diphenhydramine HCl (Benadryl) 25 mg PO Q3H PRN PRN Reason: Itching Famotidine (Pepcid) 20 mg PO BIDPRN PRN PRN Reason: Heartburn or Indigestion Fentanyl (Sublimaze) 50 mcg SLOW IVP Q1H PRN PRN Reason: .BREAKTHROUGH PAIN Ferrous Gluconate (Fergon) 324 mg PO BID-[facility] Last Admin: 12/21/17 09:14 Dose: 324 mg Glucagon (Glucagon) 1 mg IM PRN PRN PRN Reason: Hypoglycemia Guaifenesin (Robitussin Sf) 200 mg PO Q4H PRN PRN Reason: Cough Hydralazine HCl (Apresoline) 10 mg SLOW IVP Q4H PRN PRN Reason: Systolic BP > 180 Hydrochlorothiazide (Hydrochlorothiazide) 25 mg PO DAILY [facility] Last Admin: 12/21/17 09:10 Dose: 25 mg Dextrose/Water (D5w) 1,000 mls @ 0 mls/hr IV .Q0M PRN; As Directed PRN Reason: Hypoglycemia Sodium Chloride (Normal Saline 0.9%) 1,000 mls @ 100 mls/hr IV .Q10H [facility] Last Admin: 12/21/17 03:32 Dose: Not Given Bupivacaine HCl 50 ml/ Sodium (Chloride) 100 mls @ 0 mls/hr NERVE BLCK INF [facility] PRN Reason: As Directed Last Admin: 12/19/17 23:37 Dose: 100 mls Insulin Human Lispro (Humalog) 0 units SC .MODERATE SLIDING SC PRN PRN Reason: Moderate Correctional Scale Insulin Human Lispro (Humalog) 0 units SC .BEDTIME SLIDING SC PRN PRN Reason: Bedtime Correctional Scale Iron/Minerals/Multivitamins (Theragran M) 1 tab PO DAILY [facility] Last Admin: 12/21/17 09:10 Dose: 1 tab Ketorolac Tromethamine (Toradol) 15 mg IVP Q6H PRN PRN Reason: Mild-Moderate Pain (1-5) Stop: 12/23/17 19:01 Loperamide HCl (Imodium) 2 mg PO PRN PRN PRN Reason: Diarrhea/Loose Stools Losartan Potassium (Cozaar) 50 mg PO [facility] Last Admin: 12/20/17 22:00 Dose: 50 mg Magnesium Hydroxide (Milk Of Magnesium) 30 ml PO DAILYPRN PRN PRN Reason: Constipation Metformin HCl (Glucophage) 500 mg PO BID-[facility] Last Admin: 12/21/17 09:14 Dose: 500 mg Mineral Oil/White Petrolatum (Eucerin Cream) 0 gm TOP BIDPRN PRN PRN Reason: Dry Skin Naloxone HCl (Narcan) 0.2 mg IV Q5MIN PRN PRN Reason: RR <8 or pt obtun/unarousable Ondansetron HCl (Zofran) 4 mg IVP Q6H PRN PRN Reason: Nausea/Vomiting Last Admin: 12/19/17 08:57 Dose: 4 mg Pantoprazole Sodium (Protonix) 40 mg PO DAILY [facility] Last Admin: 12/21/17 09:10 Dose: 40 mg Phenol (Chloraseptic [place] 180 Ml Bot) 0 ml PO PRN PRN PRN Reason: Sore Throat Promethazine HCl (Phenergan) 12.5 mg IM Q4H PRN PRN Reason: Nausea/Vomiting Promethazine HCl (Phenergan) 12.5 mg SLOW IVP Q4H PRN PRN Reason: Nausea/Vomiting Senna (Senokot) 2 tab PO HSPRN PRN PRN Reason: Constipation Senna/Docusate Sodium (Senokot S) 2 tab PO BID [facility] Last Admin: 12/21/17 09:10 Dose: 2 tab Sodium Chloride (Flush - Normal Saline) 10 ml IVF PRN PRN PRN Reason: Saline Flush Zolpidem Tartrate (Ambien) 5 mg PO HSPRN PRN PRN Reason: Insomnia
--- NOTE | 2017-12-21 11:42 | ADD-DIS ---
ADDENDUM The patient is seen and examined at bedside today. Please see my progress note from today for furthe r detail. This patient is off DOUGH PANNER pump and she is doing very well. The patient was planned for disc harge to rehab, but she did not qualify for rehab and that is why now patient will be discharged home with home health. Please see my discharge summary dictated yesterday and medication on discharge as per previous.
[2017-12-21 11:46] VITALS: BP 131/65; TEMP 98
== END 2017-12-21 13:56 | disposition home health service (06) | DRG 470 ==
LOC: SDC 06:29 → SJJU 12:25
PROVIDERS: ADMIT Orthopaedic Surgery; ATTEND Orthopaedic Surgery
PROC: 0SRD0J9 Replacement of Left Knee Joint with Synthetic Substitute, Cemented, Open Approach (ICD-10-PCS; principal; 2017-12-18)
PROC: 3E0T3BZ Introduction of Anesthetic Agent into Peripheral Nerves and Plexi, Percutaneous Approach (ICD-10-PCS; 2017-12-18)
DX: M17.0 Bilateral primary osteoarthritis of knee (principal); I10 Essential (primary) hypertension; E11.9 Type 2 diabetes mellitus without complications; R35.0 Frequency of micturition; F32.9 Major depressive disorder, single episode, unspecified; G89.29 Other chronic pain; M54.5 Low back pain; M21.162 Varus deformity, not elsewhere classified, left knee; K21.9 Gastro-esophageal reflux disease without esophagitis; Z86.69 Personal history of other diseases of the nervous system and sense organs; Z90.710 Acquired absence of both cervix and uterus; Z88.8 Allergy status to other drugs, medicaments and biological substances; Z79.899 Other long term (current) drug therapy; Z79.84 Long term (current) use of oral hypoglycemic drugs
CPT/HCPCS: 36415; 36416; 85027; 86850; 86900; 86901; 86922; C1713; C1776; G8978-GP-CM; G8979-GP-CK; G8987-GO-CK; G8988-GO-CI; J0131; J1885; J2001; J2250; J2405; J2704; J2795; J3010; J3370; J3490; J7050

== ENCOUNTER 2018-03-06 16:36 | Emergency (ER) | payer MEDICARE ==
--- NOTE | 2018-03-06 18:40 | RAD ---
LEFT KNEE 4 VIEWS: Date: 03/06/18 HISTORY: injury, left knee pain. FINDINGS/IMPRESSION: There are postop changes of total knee arthroplasty in good position and alignment. No fracture or di slocation is seen. No periprosthetic lucency is seen to suggest loosening. POS: [facility]
== END 2018-03-06 18:03 | disposition home or self-care (01) ==
LOC: ERS 16:36
DX: M25.562 Pain in left knee (principal); I10 Essential (primary) hypertension; E11.9 Type 2 diabetes mellitus without complications; Z79.899 Other long term (current) drug therapy; Z79.84 Long term (current) use of oral hypoglycemic drugs; W01.0XXA Fall on same level from slipping, tripping and stumbling without subsequent striking against object, initial encounter

== ENCOUNTER 2018-09-16 10:11 | Observation (INO) | payer MEDICARE ==
[2018-09-16 10:42] LABS: #Basophils 0.1 thou/uL (0.0-0.2); #Eosinphils 0.1 thou/uL (0.0-0.7); #Lymphocytes 1.6 thou/uL (1.20-3.40); #Monocytes 0.6 thou/uL (0.11-0.59); #Neutrophils 4.4 thou/uL (1.40-6.50); %Basophils 0.8 % (0.0-1.0); %Eosinophils 1.2 % (0.0-10.0); %Lymphocytes 23.4 % (21.0-51.0); %Monocytes 8.9 % (0.0-10.0); %Neutrophils 65.6 % (42.0-75.0); Hemoglobin 11.3 g/dL (12.0-16.0); Mean Corpuscular HGB CONC 33.3 g/dL (32.0-36.0); Mean Corpuscular Volume 93.3 fL (78.0-98.0); Mean Platelet Volume 7.8 fL (7.4-10.4); Platelet Count 237 thou/uL (130-400); RBC Distribution Width 12.6 % (11.5-14.5); Red Blood Cell (RBC) Count 3.63 mill/uL (4.20-5.40); White Blood Cell (WBC) Count 6.7 thou/uL (4.8-10.8)
--- NOTE | 2018-09-16 11:01 | CT ---
Exam: CT brain PROVIDED CLINICAL HISTORY: Dizziness and falls COMPARISON: 05/27/2012 FINDINGS: The ventricular system is normal in size and morphology. No evidence for intracranial hemorrhage or mass effect. The extracranial soft tissues and osseous structures demonstrate an unremarkable CT appearance. IMPRESSION: No evidence for intracranial hemorrhage or mass effect.
[2018-09-16 11:06] LABS: ALT (SGPT) 16 U/L (8-55); AST (SGOT) 18 U/L (5-34); Albumin 4.2 g/dL (3.4-4.8); Alkaline Phosphatase 96 U/L (40-150); Anion Gap 13 mmol/L (10-20); BUN (Urea Nitrogen) 17 mg/dL (9.8-20.1); Bilirubin, Total 0.5 mg/dL (0.2-1.2); Calc. Creatinine Clearance 0 mL/min (70-130); Calcium 9.2 mg/dL (7.8-10.44); Carbon Dioxide 27 mmol/L (23-31); Chloride 103 mmol/L (98-107); Estimated GFR-MDRD Greater than 90; Globulin 2.4 g/dL (2.4-3.5); Glucose 115 mg/dL (83-110); Potassium 3.7 mmol/L (3.5-5.1); Protein, Total 6.6 g/dL (6.0-8.3); Sodium 139 mmol/L (136-145)
[2018-09-16 11:51] LABS: Bilirubin Negative (Negative); Blood, Urine Negative (Negative); Clarity CLEAR (Clear); Glucose, Urine (Dipstick) Negative (Negative); Leukocyte Negative (Negative); Nitrite Negative (Negative); Protein, Urine (Dipstick) Negative (Neg-Trace); Specific Gravity, Urine 1.012 (1.002-1.036); Urobilinogen 0.2 mg/dL (0.2-1.0); pH, Urine 6.5 (5.0-9.0)
[2018-09-16] MEDS ORDERED: Aspirin Chewable 81 MG TAB ONE (12:05)
[2018-09-16] MEDS ORDERED: Ondansetron ODT 4 MG TAB PO PRN (13:04)
[2018-09-16 13:39] LABS: Hemoglobin A1c 5.1 % (4.0-6.0)
[2018-09-16 13:57] LABS: Troponin I 0.012 ng/mL (< 0.028)
--- NOTE | 2018-09-16 14:04 | HP ---
PRIMARY CARE PROVIDER: Rosalia Cook MD Referred to [facility] [place] [facility] by [facility]. The patient has been dizzy and lightheaded for about three weeks, comes and goes. She is not definitely able to related to rising. She had two falls today and two falls yesterday, ten over the past several weeks. She has had no blackout. She has had some visual disturbance. No focal weakness and no injury. PAST MEDICAL HISTORY: Pertinent for diabetes mellitus type 2, hypertension, anxiety, depression related to her 's illness. MEDICATIONS: She takes 1. Metformin 500 mg twice a day. 2. Gabapentin 100 mg once a day. 3. Norvasc 20 mg a day. 4. Hydrochlorothiazide 25 mg once a day. 5. Florastor 250 mg twice a day. 6. Multivitamins twice a day. 7. Iron 65 mg a day. 8. B12 500 mcg a day. 9. Trazodone 50 mg at bedtime. 10. Duloxetine 30 mg at bedtime. 11. Losartan 100 mg once a day. ALLERGIES: SHE IS ALLERGIC TO STATINS AND SERTRALINE. SURGICAL HISTORY: She has had a total knee replacement on the left and a hysterectomy. FAMILY HISTORY: No strokes. Father had diabetes. Mother had hypertension. Both . SOCIAL HISTORY: She is . Her has severe dementia, bipolar illness. She is full code status. Her daughter, Rabia Austin is next of kin and decision maker. She does not smoke or drink alcohol. REVIEW OF SYSTEMS: GENERAL: No headaches or fainting. EYES: Some double vision, visual disturbance with these spells. I cannot get a definite history of tunnel vision. EAR, NOSE, AND THROAT: She has some left ear pain. No drainage. Nose no bleeding or drainage. Swallowing, no oral pain or trouble swallowing. CARDIAC: No chest pain, orthopnea, or paroxysmal nocturnal dyspnea. RESPIRATION: No cough, wheezing, or asthma. GASTROINTESTINAL: No nausea, vomiting, diarrhea, constipation, or abdominal pain. GENITOURINARY: No hematuria, dysuria or frequency. MUSCULOSKELETAL: Occasional swelling in her legs. No pain in her arms or legs. NEUROLOGICAL: No strokes, seizures, or focal weakness. PSYCHIATRIC: Some anxiety, depression related to her 's illness and being his primary care provider. SKIN: She says she bruises easily. No rash. HEME/LYMPH: No tender or swollen lymph nodes in the axilla, inguinal, or cervical area. PHYSICAL EXAMINATION: GENERAL: She is alert, oriented, cooperative, pleasant lady. Daughter at bedside. VITAL SIGNS: Blood pressure 152/62, pulse 70, respirations 18, temperature 97.5. HEAD, EYES, EARS, NOSE, AND THROAT: Revealed pupils are equal, round, and reactive to light. Extraocular movements are intact. Sclerae are white. Tympanic membranes clear. Nose is clear. Oral mucous membranes are clear. There are no oral lesions. NECK: No jugular venous distention, adenopathy or thyromegaly. CHEST: Clear to auscultation and percussion. HEART: Had a regular rate and rhythm. First and second heart sounds are clear. There are no murmurs or gallops. ABDOMEN: Soft. Bowel sounds are normal. There is no hepatosplenomegaly. No mass. No rebound. No bruits. EXTREMITIES: Reveal no cyanosis, clubbing, or edema. PULSES: Carotid, radial, femoral, and dorsalis pedis pulses intact. SKIN: Warm and dry without bruises or rash. HEME/LYMPH: No tender or swollen lymph nodes in the axilla, inguinal, cervical area. NEUROLOGICAL: Cranial nerves 2 through 12 are intact. Deep tendon reflexes intact. strength symmetrical bilaterally. Toes downgoing. Brain CT, no acute intracranial findings reviewed by me. EKG has been ordered, is not available, I will review when available. White cell count 6.7, hemoglobin 11.3, and platelet count 237,000. Urine is clear. Comprehensive metabolic profile is normal except for a glucose of 115. ADMITTING DIAGNOSES: 1. Possible transient ischemic attacks. 2. Frequent falls. 3. Hypertension. 4. Diabetes mellitus type 2. 5. Anxiety, depression. PLAN: 1. Aspirin. 2. Carotid ultrasound, MRI of the brain, serial Accu-Chek, hemoglobin A1c, orthostatic blood pressures. Job ID: [id number] [facility]
--- NOTE | 2018-09-16 14:22 | MRI ---
EXAM: MRI Brain WO Con PROVIDED CLINICAL HISTORY: Stroke COMPARISON: CT same date FINDINGS: The ventricular system remains normal in size and morphology. There is no evidence for intracranial h emorrhage or mass effect. There is no evidence for restricted diffusion to suggest recent infarction. Appropriate flow voids are seen within the major intracranial vessels. The extracranial s oft tissues and calvarial marrow signal demonstrate an unremarkable MR appearance. IMPRESSION: No evidence for an acute intracranial abnormality.
--- NOTE | 2018-09-16 14:42 | ULT ---
EXAM: Carotid Doppler PROVIDED CLINICAL HISTORY: TIA COMPARISON: None FINDINGS: Grayscale and color Doppler sonography with spectral analysis was performed of the extracranial carot id system bilaterally. Mild calcified plaque seen in left ICA. There is no evidence for a hemodynamically significant internal carotid artery stenosis by peak systolic velocity or ratio crite alyssia. Antegrade flow is seen in the vertebral arteries. IMPRESSION: No sonographic evidence for a hemodynamically significant internal carotid artery stenosis.
[2018-09-16 17:09] LABS: Troponin I Less than 0.010 ng/mL (< 0.028)
[2018-09-16 18:31] VITALS: BMI 29.0
[2018-09-16] MEDS: metFORMIN 500 MG TAB PO SCH (19:27)
[2018-09-16] MEDS: Acetaminophen 325 MG TAB PO PRN (19:27)
[2018-09-16] MEDS ORDERED: Losartan 25 MG TAB PO SCH (21:00)
[2018-09-16] MEDS: Aspirin 81 mg Enteric Coated Tablet PO SCH (21:23)
[2018-09-17 05:45] LABS: #Eosinphils 0.2 thou/uL (0.0-0.7); #Lymphocytes 2.1 thou/uL (1.20-3.40); #Monocytes 0.5 thou/uL (0.11-0.59); #Neutrophils 2.2 thou/uL (1.40-6.50); %Basophils 0.3 % (0.0-1.0); %Eosinophils 3.1 % (0.0-10.0); %Lymphocytes 42.4 % (21.0-51.0); %Monocytes 10.4 % (0.0-10.0); %Neutrophils 43.9 % (42.0-75.0); Hemoglobin 11.1 g/dL (12.0-16.0); Mean Corpuscular HGB CONC 33.4 g/dL (32.0-36.0); Platelet Count 237 thou/uL (130-400); RBC Distribution Width 12.5 % (11.5-14.5); Red Blood Cell (RBC) Count 3.57 mill/uL (4.20-5.40); White Blood Cell (WBC) Count 4.9 thou/uL (4.8-10.8)
[2018-09-17 06:00] LABS: Anion Gap 12 mmol/L (10-20); BUN (Urea Nitrogen) 14 mg/dL (9.8-20.1); Calc. Creatinine Clearance 74 mL/min (70-130); Calcium 9.1 mg/dL (7.8-10.44); Carbon Dioxide 24 mmol/L (23-31); Cardiac Risk 3.7 (Less than 4.5); Chloride 108 mmol/L (98-107); Cholesterol 203 mg/dl (< 200 Desired); Estimated GFR-MDRD Greater than 90; Glucose 111 mg/dL (83-110); HDL Cholesterol 55 mg/dL (>60 Neg Risk); LDL Cholesterol, Calculated 134 mg/dL; Potassium 3.6 mmol/L (3.5-5.1); Sodium 140 mmol/L (136-145); Triglycerides 70 mg/dL (Less than 150)
[2018-09-17] MEDS ORDERED: Ferrous Sulfate 325 MG TAB PO SCH (08:00)
[2018-09-17] MEDS: metFORMIN 500 MG TAB PO SCH ×2 (08:56→17:35)
[2018-09-17] MEDS: Aspirin 81 mg Enteric Coated Tablet PO SCH (08:56)
[2018-09-17] MEDS: Acetaminophen 325 MG TAB PO PRN (08:56)
[2018-09-17] MEDS ORDERED: Enoxaparin Sodium 40 MG/0.4 ML SYRINGE SC SCH (09:00)
[2018-09-17] MEDS ORDERED: Amlodipine 5 MG TAB PO SCH (09:00)
[2018-09-17] MEDS ORDERED: Aspirin 81 mg Enteric Coated Tablet PO SCH (09:00)
[2018-09-17] MEDS ORDERED: Aspirin 325 mg Enteric Coated Tablet PO SCH (09:00)
[2018-09-17] MEDS ORDERED: ISOVUE-370 76%-LOCM 1 ML ONE (10:08)
--- NOTE | 2018-09-17 14:41 | ULT ---
VENOUS DOPPLER ULTRASOUND OF THE LEFT LOWER EXTREMITY: Date: 09/17/18 HISTORY: Left knee replacement last year with multiple falls. Left leg pain and edema. Pleuritic chest pain. TECHNIQUE: Rachel scale ultrasound with color flow and spectral Doppler imaging of the deep venous system of the l eft lower extremity was performed. FINDINGS: There is good flow, compression, and augmentation noted in the left common femoral, femoral, deep fem oral, popliteal, posterior tibial, and greater saphenous veins. IMPRESSION: No evidence of deep venous thrombosis in the left lower extremity. POS: [facility]
[2018-09-17 15:49] VITALS: BP 150/68; TEMP 98.2
--- NOTE | 2018-09-17 16:37 | CT ---
CTA Angio Chest W WO Con HISTORY: Elevated d-dimer pleuritic chest pain COMPARISON: None. FINDINGS: There is evidence for some air trapping. The lungs are clear of any infiltrative process. C alcified granuloma is seen within the right lung. The thoracic aorta is normal in caliber. There is good pulmonary artery opacification, there is no CT evidence for pulmonary embolus. Visualized liver parenchyma shows no focal findings. A left renal cyst is identified. It measures 4.5 cm. Right and left adrenal glands are normal. Coronary artery calcifications are present. IMPRESSION: No CT evidence for pulmonary embolus.
[2018-09-18] MEDS ORDERED: Aspirin 325 mg Enteric Coated Tablet PO SCH (09:00)
== END 2018-09-17 19:20 | disposition home or self-care (01) ==
LOC: ERS 10:11 → ERHOLD 13:08 → 2SE 18:06
PROVIDERS: ADMIT Internal Medicine; ATTEND Internal Medicine
DX: R42 Dizziness and giddiness (principal); E11.9 Type 2 diabetes mellitus without complications; I10 Essential (primary) hypertension; F41.9 Anxiety disorder, unspecified; F32.9 Major depressive disorder, single episode, unspecified; Z79.84 Long term (current) use of oral hypoglycemic drugs; Z79.899 Other long term (current) drug therapy; Z88.8 Allergy status to other drugs, medicaments and biological substances
CPT/HCPCS: 70450; 70551; 71275; 80048; 80053; 80061; 81003; 82962; 83036; 84484 ×2; 85025 ×2; 85379; 93005; 93880; 93971; 96372; 97116; 97139 ×4; 97535; 99285; G0378 ×2; 36415; 36416; 96360; 96361; J1650; Q9966

== ENCOUNTER 2019-02-27 10:53 | Emergency (ER) | payer MEDICARE ==
[2019-02-27] MEDS ORDERED: Ibuprofen 200 MG TAB ONE (11:13)
--- NOTE | 2019-02-27 11:42 | RAD ---
EXAM: Chest 2 views: HISTORY: Left-sided rib pain following an injury from a fall COMPARISON: 12/15/2014 FINDINGS: Increased linear and interstitial markings, particularly in the bases, possibly progressive chronic c hange versus mild subsegmental atelectasis. Stable right lower chest granuloma calcification. Heart size:Within normal limits. Lungs:Clear of acute process. Atherosclerotic changes of the aorta. No confluent pneumonia, overt edema, pleural effusion, pneumothorax, or other significant acute proce ss. IMPRESSION: Minimal increased linear and interstitial markings in the bases. This could represent minimal progressive chronic change versus minimal subsegmental atelectasis. Atherosclerosis of the aorta. No acute intrathoracic disease.
== END 2019-02-27 12:15 | disposition home or self-care (01) ==
LOC: SCSER 10:53
DX: S20.212A Contusion of left front wall of thorax, initial encounter (principal); E11.9 Type 2 diabetes mellitus without complications; I10 Essential (primary) hypertension; F41.9 Anxiety disorder, unspecified; F32.9 Major depressive disorder, single episode, unspecified; F03.90 Unspecified dementia, unspecified severity, without behavioral disturbance, psychotic disturbance, mood disturbance, and anxiety; Z79.899 Other long term (current) drug therapy; Z79.82 Long term (current) use of aspirin; Z79.84 Long term (current) use of oral hypoglycemic drugs; W22.8XXA Striking against or struck by other objects, initial encounter
CPT/HCPCS: 71046

== ENCOUNTER 2019-04-17 10:11 | Outpatient (CLI) | payer MEDICARE ==
--- NOTE | 2019-04-17 11:54 | MMO ---
Bilateral MAMMO Bilat Screen [facility]. CLINICAL HISTORY: Patient is 83 years old and is seen for screening. The patient has the following family history of breast cancer: mother, at age 78, and uterine. The patient has no personal history of cancer. The patient has a history of left Excisional Biopsy in 1969 - benign. VIEWS: The views performed were: bilateral craniocaudal with tomosynthesis and bilateral mediolateral oblique with tomosynthesis. FILMS COMPARED: The present examination has been compared to prior imaging studies performed at [facility] on 09/26/2012, 10/09/2013, 10/14/2014 and 10/19/2015. This study has been interpreted with the assistance of computer-aided detection. MAMMOGRAM FINDINGS: There are scattered fibroglandular densities. There are no suspicious masses, calcifications or areas of architectural distortion. There are benign appearing calcifications in both breasts. There are no suspicious masses, suspicious calcifications, or new areas of architectural distortion. IMPRESSION: THERE IS NO MAMMOGRAPHIC EVIDENCE OF MALIGNANCY. A ROUTINE FOLLOW-UP MAMMOGRAM IN 1 YEAR IS RECOMMENDED. THE RESULTS OF THIS EXAM WERE SENT TO THE PATIENT. ACR BI-RADS Category 2 - Benign finding MAMMOGRAPHY NOTE: 1. A negative mammogram report should not delay a biopsy if a dominant of clinically suspicious mass is present. 2. Approximately 10% to 15% of breast cancers are not detected by mammography. 3. Adenosis and dense breasts may obscure an underlying neoplasm. Reported by: KRISSY RODRÍGUEZ MD Electonically Signed: [id number]
--- NOTE | 2019-04-17 12:08 | BD ---
BONE DENSITOMETRY USING DEXA: Date: 04/17/19 HISTORY: 83-year-old female with osteoporosis. FINDINGS: BMD (g/cm2) Right Hip: Neck: 0.540 T-Score: -2.8 Z-Score: -0.4 Total: 0.699 T-Score: -2.0 Z-Score: 0.2 Left Hip: Neck: 0.418 T-Score: -3.9 Z-Score: -1.5 Total: 0.618 T-Score: -2.7 Z-Score: -0.5 IMPRESSION: Osteoporosis. POS: [facility]
== END 2019-04-17 10:12 | disposition home or self-care (01) ==
LOC: BICMAMMO 10:11
PROVIDERS: ATTEND Family Medicine
DX: Z12.31 Encounter for screening mammogram for malignant neoplasm of breast (principal); Z13.820 Encounter for screening for osteoporosis; Z78.0 Asymptomatic menopausal state; M81.0 Age-related osteoporosis without current pathological fracture; Z80.3 Family history of malignant neoplasm of breast
CPT/HCPCS: 77063; 77067; 77080

== ENCOUNTER 2020-04-22 11:00 | Outpatient (CLI) | payer MEDICARE ==
--- NOTE | 2020-04-22 11:30 | MMO ---
Bilateral MAMMO Bilat Screen [facility]. CLINICAL HISTORY: Patient is 84 years old and is seen for screening. The patient has the following family history of breast cancer: mother, at age 78, and uterine. The patient has no personal history of cancer. The patient has a history of left Excisional Biopsy in 1969 - benign. VIEWS: The views performed were: bilateral craniocaudal with tomosynthesis and bilateral mediolateral oblique with tomosynthesis. FILMS COMPARED: The present examination has been compared to prior imaging studies performed at [facility] on 10/09/2013, 10/14/2014, 10/19/2015 and 04/17/2019. This study has been interpreted with the assistance of computer-aided detection. MAMMOGRAM FINDINGS: There are scattered fibroglandular densities. There are stable benign appearing calcifications seen in both breasts. There are also vascular calcifications. There are no suspicious masses, suspicious calcifications, or new areas of architectural distortion. IMPRESSION: THERE IS NO MAMMOGRAPHIC EVIDENCE OF MALIGNANCY. A ROUTINE FOLLOW-UP MAMMOGRAM IN 1 YEAR IS RECOMMENDED. THE RESULTS OF THIS EXAM WERE SENT TO THE PATIENT. ACR BI-RADS Category 2 - Benign finding MAMMOGRAPHY NOTE: 1. A negative mammogram report should not delay a biopsy if a dominant of clinically suspicious mass is present. 2. Approximately 10% to 15% of breast cancers are not detected by mammography. 3. Adenosis and dense breasts may obscure an underlying neoplasm. Reported by: ANGEL PALUMBO MD Electonically Signed: [id number]
== END 2020-04-22 11:01 | disposition home or self-care (01) ==
LOC: BICMAMMO 11:00
PROVIDERS: ATTEND Family Medicine
DX: Z12.31 Encounter for screening mammogram for malignant neoplasm of breast (principal); Z91.89 Other specified personal risk factors, not elsewhere classified; Z80.3 Family history of malignant neoplasm of breast
CPT/HCPCS: 77063; 77067

== ENCOUNTER 2020-09-14 20:01 | Inpatient (IN) | payer MEDICARE, OTHER ==
[~2020-09-14 20:01] MED LIST: Iopamidol-370 76% 500 ML 1 ML ONE
[2020-09-14 20:46] LABS: #Basophils 0.1 thou/uL (0.0-0.2); #Lymphocytes 2.3 thou/uL (1.20-3.40); #Monocytes 0.7 thou/uL (0.11-0.59); #Neutrophils 6.9 thou/uL (1.40-6.50); %Basophils 0.6 % (0.0-1.0); %Eosinophils 0.5 % (0.0-10.0); %Lymphocytes 22.7 % (21.0-51.0); %Monocytes 6.5 % (0.0-10.0); %Neutrophils 69.7 % (42.0-75.0); Hemoglobin 11.9 g/dL (12.0-16.0); Mean Corpuscular HGB CONC 33.5 g/dL (32.0-36.0); Mean Corpuscular Hemoglobin 30.7 pg (27.0-31.0); Mean Corpuscular Volume 91.7 fL (78.0-98.0); Mean Platelet Volume 7.5 fL (7.4-10.4); Platelet Count 286 thou/uL (130-400); RBC Distribution Width 12.5 % (11.5-14.5); Red Blood Cell (RBC) Count 3.87 mill/uL (4.20-5.40); White Blood Cell (WBC) Count 9.9 thou/uL (4.8-10.8)
[2020-09-14 21:10] LABS: ALT (SGPT) 16 U/L (8-55); AST (SGOT) 17 U/L (5-34); Albumin 4.1 g/dL (3.4-4.8); Alkaline Phosphatase 103 U/L (40-110); Anion Gap 13 mmol/L (10-20); BUN (Urea Nitrogen) 19 mg/dL (9.8-20.1); Bilirubin, Total 0.2 mg/dL (0.2-1.2); Calc. Creatinine Clearance 0 mL/min (70-130); Calcium 9.3 mg/dL (7.8-10.44); Carbon Dioxide 28 mmol/L (23-31); Chloride 102 mmol/L (98-107); Globulin 2.9 g/dL (2.4-3.5); Glucose 122 mg/dL (83-110); Magnesium 1.9 mg/dL (1.6-2.6); Potassium 3.7 mmol/L (3.5-5.1); Sodium 139 mmol/L (136-145)
[2020-09-14] MEDS ORDERED: Amoxicillin/Potassium Clav 875 MG TAB ONE (23:26)
[2020-09-15] MEDS ORDERED: Nitroglycerin 2% Ointment 1 INCH/1 GM Packet ONE (01:55)
[2020-09-15] MEDS ORDERED: Morphine 2 MG/ML VIAL ONE (02:41)
[2020-09-15] MEDS ORDERED: Acetaminophen 325 MG TAB PO PRN (04:46)
[2020-09-15 04:48] VITALS: BMI 29.9
[2020-09-15] MEDS ORDERED: Aspirin Chewable 81 MG TAB PO SCH (05:00)
[2020-09-15] MEDS ORDERED: HumaLOG 300 UNITS/3 ML VIAL SC PRN (05:05)
[2020-09-15] MEDS ORDERED: Dextrose 5% in Water 1,000 ML IV PRN (05:05)
[2020-09-15] MEDS ORDERED: Dextrose 50% Abboject 50 ML SYRINGE SLOW IVP PRN (05:05)
[2020-09-15 05:06] LABS: SARS-CoV-2 PCR by NAA Not Detected (NotDetected)
[2020-09-15 06:37] LABS: Troponin I 0.024 ng/mL (< 0.028)
[2020-09-15] MEDS ORDERED: Zolpidem Tartrate 5 MG TAB PO PRN (08:02)
[2020-09-15] MEDS ORDERED: Sodium Chloride 0.65% Nasal 44 ML BOT EA NARE PRN (08:02)
[2020-09-15] MEDS ORDERED: Bisacodyl 5 MG TAB PO PRN (08:02)
[2020-09-15] MEDS ORDERED: GUAIFENESIN SF SOLN 200 MG/10 ML UDCUP PO PRN (08:02)
[2020-09-15] MEDS ORDERED: Loperamide HCl 2 MG CAP PO PRN (08:02)
[2020-09-15] MEDS ORDERED: Ondansetron ODT 4 MG TAB PO PRN (08:02)
[2020-09-15] MEDS ORDERED: Calcium Carbonate 500 MG ChewTAB PO PRN (08:02)
[2020-09-15] MEDS ORDERED: Ondansetron PF 4 MG/2 ML Vial IVP PRN (08:02)
[2020-09-15] MEDS ORDERED: Cepastat Lozenges 1 LOZ PO PRN (08:02)
[2020-09-15] MEDS ORDERED: HYDROcodone/Acetaminophen 5/325 mg Tablet PO PRN (08:02)
[2020-09-15] MEDS ORDERED: hydrALAZINE 20 MG/ML VIAL SLOW IVP PRN (08:02)
[2020-09-15] MEDS ORDERED: Senokot S 8.6-50 MG TAB PO PRN (08:02)
[2020-09-15] MEDS ORDERED: Loratadine 10 MG TAB PO PRN (08:02)
[2020-09-15] MEDS ORDERED: Aspirin Chewable 81 MG TAB ONE (08:28)
[2020-09-15] MEDS ORDERED: Enoxaparin Sodium 40 MG/0.4 ML SYRINGE ONE (08:28)
[2020-09-15] MEDS ORDERED: Iopamidol-370 76% 500 ML 1 ML ONE (08:48)
[2020-09-15] MEDS: Enoxaparin Sodium 40 MG/0.4 ML SYRINGE SC SCH (08:48)
[2020-09-15] MEDS ORDERED: Aspirin 81 mg Enteric Coated Tablet PO SCH (09:00)
[2020-09-15] MEDS ORDERED: Hydrochlorothiazide 25 MG TAB PO SCH (15:15)
[2020-09-15] MEDS ORDERED: DULoxetine 30 MG CAP PO SCH (15:15)
[2020-09-15] MEDS ORDERED: Amlodipine 10 MG TAB PO SCH (15:15)
[2020-09-15] MEDS: Glimepiride 4 MG TAB PO SCH (20:27)
[2020-09-15] MEDS: Aspirin 81 mg Enteric Coated Tablet PO SCH (20:27)
[2020-09-15] MEDS ORDERED: traZODone HCl 50 MG TAB PO SCH (21:00)
[2020-09-15] MEDS ORDERED: Losartan 25 MG TAB PO SCH (21:00)
[2020-09-16 04:29] LABS: #Eosinphils 0.2 thou/uL (0.0-0.7); #Lymphocytes 2.2 thou/uL (1.20-3.40); #Monocytes 0.7 thou/uL (0.11-0.59); #Neutrophils 3.9 thou/uL (1.40-6.50); %Basophils 0.6 % (0.0-1.0); %Eosinophils 2.6 % (0.0-10.0); %Monocytes 9.5 % (0.0-10.0); %Neutrophils 55.4 % (42.0-75.0); Hemoglobin 11.1 g/dL (12.0-16.0); Mean Corpuscular HGB CONC 33.3 g/dL (32.0-36.0); Mean Corpuscular Hemoglobin 30.6 pg (27.0-31.0); Mean Corpuscular Volume 91.8 fL (78.0-98.0); Mean Platelet Volume 7.8 fL (7.4-10.4); Platelet Count 247 thou/uL (130-400); RBC Distribution Width 12.6 % (11.5-14.5); Red Blood Cell (RBC) Count 3.63 mill/uL (4.20-5.40)
[2020-09-16 04:49] LABS: Anion Gap 16 mmol/L (10-20); BUN (Urea Nitrogen) 20 mg/dL (9.8-20.1); Calc. Creatinine Clearance 90 mL/min (70-130); Carbon Dioxide 24 mmol/L (23-31); Chloride 103 mmol/L (98-107); Cholesterol 190 mg/dl (< 200 Desired); Glucose 104 mg/dL (83-110); HDL Cholesterol 47 mg/dL (>60 Neg Risk); LDL Cholesterol, Calculated 120 mg/dL; Potassium 3.6 mmol/L (3.5-5.1); Sodium 139 mmol/L (136-145); Triglycerides 115 mg/dL (Less than 150)
[2020-09-16] MEDS: Enoxaparin Sodium 40 MG/0.4 ML SYRINGE SC SCH (08:24)
[2020-09-16] MEDS: Aspirin 81 mg Enteric Coated Tablet PO SCH (08:24)
[2020-09-16] MEDS: Glimepiride 4 MG TAB PO SCH (08:24)
[2020-09-16] MEDS ORDERED: Regadenoson 0.4 MG/5 ML SYRINGE ONE (08:41)
[2020-09-16] MEDS ORDERED: DULoxetine 30 MG CAP PO SCH (09:00)
[2020-09-16] MEDS ORDERED: Amlodipine 10 MG TAB PO SCH (09:00)
[2020-09-16] MEDS ORDERED: Hydrochlorothiazide 25 MG TAB PO SCH (09:00)
[2020-09-16] MEDS ORDERED: Iopamidol-370 76% 500 ML 1 ML ONE (13:04)
[2020-09-16 15:33] VITALS: BP 148/67; TEMP 97.7
== END 2020-09-16 18:10 | disposition home or self-care (01) | DRG 69 ==
LOC: ERS 20:01 → ERHOLD 23:33 → 2SW 09-15 13:04 → OBSVTOIN 09-16 09:40
PROVIDERS: ADMIT Student in an Organized Health Care Education/Training Program; ATTEND Internal Medicine
DX: G45.9 Transient cerebral ischemic attack, unspecified (principal); K57.92 Diverticulitis of intestine, part unspecified, without perforation or abscess without bleeding; Z20.822 Contact with and (suspected) exposure to COVID-19; R07.89 Other chest pain; E11.9 Type 2 diabetes mellitus without complications; I10 Essential (primary) hypertension; D64.9 Anemia, unspecified; K21.9 Gastro-esophageal reflux disease without esophagitis; M19.90 Unspecified osteoarthritis, unspecified site; Z96.652 Presence of left artificial knee joint; F41.9 Anxiety disorder, unspecified; F32.9 Major depressive disorder, single episode, unspecified; Z88.1 Allergy status to other antibiotic agents; Z88.8 Allergy status to other drugs, medicaments and biological substances; Z79.84 Long term (current) use of oral hypoglycemic drugs; Z79.82 Long term (current) use of aspirin; Z79.899 Other long term (current) drug therapy; Z90.49 Acquired absence of other specified parts of digestive tract; Z90.710 Acquired absence of both cervix and uterus
CPT/HCPCS: 36415; 36416; 70450; 70496; 70498; 70551; 71045; 71275; 74177; 78452; 80048; 80053; 80061; 83735; 83880; 84484; 85025; 85379; 87635; 93005; 93017; 93306; 94640; 94760; 96372; 96374; A9500; G0378; J1650; J2270; J2785; J7620; Q9967; U0003; U0005

== ENCOUNTER 2020-09-23 10:54 | Outpatient (CLI) | payer MEDICARE, OTHER | END 2020-09-23 10:55 | disposition home or self-care (01) | LOC: BICRAD 10:54 | PROVIDERS: ATTEND Family Medicine | DX: M54.2 Cervicalgia (principal); M47.812 Spondylosis without myelopathy or radiculopathy, cervical region; M25.78 Osteophyte, vertebrae | CPT/HCPCS: 72040 ==

== ENCOUNTER 2021-04-09 13:59 | Outpatient (CLI) | payer MEDICARE, OTHER | END 2021-04-09 14:00 | disposition home or self-care (01) | LOC: BICMRI 13:59 | DX: M25.561 Pain in right knee (principal); S83.241A Other tear of medial meniscus, current injury, right knee, initial encounter; M25.461 Effusion, right knee; M65.9 Synovitis and tenosynovitis, unspecified; Z96.652 Presence of left artificial knee joint ==

== ENCOUNTER 2021-04-23 09:52 | Outpatient (CLI) | payer MEDICARE | END 2021-04-23 09:53 | disposition home or self-care (01) | LOC: BICMAMMO 09:52 | PROVIDERS: ATTEND Family Medicine | DX: Z12.31 Encounter for screening mammogram for malignant neoplasm of breast (principal); Z80.3 Family history of malignant neoplasm of breast; Z91.89 Other specified personal risk factors, not elsewhere classified | CPT/HCPCS: 77063; 77067 ==

== ENCOUNTER 2021-05-10 10:39 | Outpatient (CLI) | payer MEDICARE | END 2021-05-10 10:40 | disposition home or self-care (01) | LOC: SCSMRI 10:39 | PROVIDERS: ATTEND Chiropractor | DX: M54.50 Low back pain, unspecified (principal); M47.816 Spondylosis without myelopathy or radiculopathy, lumbar region; Z96.651 Presence of right artificial knee joint; Z98.890 Other specified postprocedural states | CPT/HCPCS: 72148 ==

== ENCOUNTER 2022-04-27 12:45 | Outpatient (CLI) | payer MEDICARE | END 2022-04-27 12:46 | disposition home or self-care (01) | LOC: MRI 12:45 | PROVIDERS: ATTEND Specialist | DX: M47.26 Other spondylosis with radiculopathy, lumbar region (principal); Z98.890 Other specified postprocedural states | CPT/HCPCS: 72148 ==

== ENCOUNTER 2022-05-25 10:48 | Outpatient (CLI) | payer MEDICARE | END 2022-05-25 10:49 | disposition home or self-care (01) | LOC: BICMAMMO 10:48 | PROVIDERS: ATTEND Family Medicine | DX: Z12.31 Encounter for screening mammogram for malignant neoplasm of breast (principal); Z80.3 Family history of malignant neoplasm of breast; Z91.89 Other specified personal risk factors, not elsewhere classified | CPT/HCPCS: 77063; 77067 ==

== ENCOUNTER 2023-06-06 15:13 | Outpatient (CLI) | payer OTHER | END 2023-06-06 15:14 | disposition home or self-care (01) | LOC: BICMAMMO 15:13 | PROVIDERS: ATTEND Family Medicine | DX: Z12.31 Encounter for screening mammogram for malignant neoplasm of breast (principal); Z91.89 Other specified personal risk factors, not elsewhere classified; Z80.3 Family history of malignant neoplasm of breast | CPT/HCPCS: 77063; 77067 ==

== ENCOUNTER 2024-05-11 13:41 | Inpatient (IN) | payer MEDICARE, OTHER ==
[2024-05-11] MEDS ORDERED: Aspirin Chewable 81 MG TAB ONE (14:14)
[2024-05-11] MEDS ORDERED: Furosemide 40 MG (4 mL) VIAL ONE (14:14)
[2024-05-11 15:11] LABS: #Basophils 0.04 10x3/uL (0.0-0.2); %Basophils 0.6 % (0.0-1.0); %Lymphocytes 16.4 % (21.0-51.0); %Monocytes 9.4 % (0.0-10.0); %Neutrophils 70.2 % (42.0-75.0); Hematocrit 34.8 % (36.0-47.0); Hemoglobin 11.4 g/dL (12.0-16.0); Mean Corpuscular HGB CONC 32.8 g/dL (32.0-36.0); Mean Corpuscular Hemoglobin 30.8 pg (27.0-31.0); Mean Corpuscular Volume 94.1 fL (78.0-98.0); Mean Platelet Volume 10.7 fL (7.4-10.4); Platelet Count 262 10x3/uL (130-400); RBC Distribution Width 13.9 % (11.5-14.5)
[2024-05-11] MEDS ORDERED: predniSONE 20 MG TAB ONE (15:15)
[2024-05-11] MEDS ORDERED: Magnesium 2 GM/50 ML BAG (IN WATER) ONE (15:16)
[2024-05-11] MEDS ORDERED: Ipratropium/Albuterol 3 ML NEB ONE (15:16)
[2024-05-11 15:28] LABS: ALT (SGPT) 21 U/L (8-55); AST (SGOT) 23 U/L (5-34); Albumin 3.7 g/dL (3.4-4.8); Alkaline Phosphatase 106 U/L (40-110); Anion Gap 14 mmol/L (10-20); BUN (Urea Nitrogen) 18 mg/dL (9.8-20.1); Bilirubin, Total 0.4 mg/dL (0.2-1.2); Calc. Creatinine Clearance 0 mL/min (70-130); Calcium 9.1 mg/dL (7.8-10.44); Carbon Dioxide 27 mmol/L (23-31); Chloride 102 mmol/L (98-107); Estimated GFR 73; Glucose 124 mg/dL (83-110); Potassium 3.7 mmol/L (3.5-5.1); Protein, Total 6.7 g/dL (5.8-8.1); Sodium 139 mmol/L (136-145)
[2024-05-11 16:20] LABS: Troponin I 0.029 ng/mL (< 0.028)
[2024-05-11] MEDS ORDERED: Calcium Carbonate 500 MG ChewTAB PO PRN (18:06)
[2024-05-11] MEDS ORDERED: Acetaminophen 500 MG TAB ONE (18:42)
[2024-05-11] MEDS ORDERED: Ketorolac Tromethamine 30 MG (1 mL) VIAL ONE (18:42)
[2024-05-11 20:05] VITALS: BMI 31.6
[2024-05-11] MEDS: traZODone HCl 50 MG TAB PO SCH (20:53)
[2024-05-11] MEDS: Losartan 25 MG TAB PO SCH (20:53)
[2024-05-11] MEDS: Glimepiride 4 MG TAB PO SCH (20:53)
[2024-05-11 21:09] LABS: Troponin I 0.021 ng/mL (< 0.028)
[2024-05-11 22:01] LABS: Troponin I 0.011 ng/mL (< 0.028)
[2024-05-12 04:21] LABS: #Basophils Less than 0.03 10x3/uL (0.0-0.2); #Eosinophils Less than 0.03 10x3/uL (0.0-0.7); %Basophils 0.1 % (0.0-1.0); %Lymphocytes 10.1 % (21.0-51.0); %Monocytes 3.6 % (0.0-10.0); %Neutrophils 85.8 % (42.0-75.0); Hematocrit 33.1 % (36.0-47.0); Mean Corpuscular HGB CONC 33.2 g/dL (32.0-36.0); Mean Corpuscular Hemoglobin 30.2 pg (27.0-31.0); Mean Corpuscular Volume 90.9 fL (78.0-98.0); Mean Platelet Volume 10.6 fL (7.4-10.4); Platelet Count 254 10x3/uL (130-400); RBC Distribution Width 13.8 % (11.5-14.5); Red Blood Cell (RBC) Count 3.64 mill/uL (4.20-5.40)
[2024-05-12 04:39] LABS: ALT (SGPT) 18 U/L (8-55); AST (SGOT) 18 U/L (5-34); Albumin 3.4 g/dL (3.4-4.8); Alkaline Phosphatase 93 U/L (40-110); Anion Gap 13 mmol/L (10-20); BUN (Urea Nitrogen) 21 mg/dL (9.8-20.1); Bilirubin, Total 0.5 mg/dL (0.2-1.2); Calc. Creatinine Clearance 60 mL/min (70-130); Calcium 8.5 mg/dL (7.8-10.44); Carbon Dioxide 29 mmol/L (23-31); Chloride 98 mmol/L (98-107); Estimated GFR 77; Globulin 2.8 g/dL (2.4-3.5); Glucose 139 mg/dL (83-110); Magnesium 2.4 mg/dL (1.6-2.6); Potassium 3.5 mmol/L (3.5-5.1); Protein, Total 6.2 g/dL (5.8-8.1); Sodium 136 mmol/L (136-145)
[2024-05-12] MEDS: Furosemide 40 MG (4 mL) VIAL SLOW IVP SCH (05:20)
[2024-05-12] MEDS ORDERED: Amlodipine 10 MG TAB PO SCH (09:00)
[2024-05-12] MEDS ORDERED: Aspirin 325 mg Enteric Coated Tablet PO SCH (09:00)
[2024-05-12] MEDS: Enoxaparin 40 MG (0.4 mL) SYRINGE SC SCH (09:15)
[2024-05-12] MEDS: Aspirin 81 mg Enteric Coated Tablet PO SCH (09:15)
[2024-05-12] MEDS: Amlodipine 10 MG TAB PO SCH (09:15)
[2024-05-12] MEDS: DULoxetine 30 MG CAP PO SCH (09:15)
[2024-05-12] MEDS: Guaifenesin DM 100-10/5 ML UDCUP PO PRN (11:03)
[2024-05-12] MEDS ORDERED: cloNIDine 0.1 MG TAB PO PRN (11:11)
[2024-05-12] MEDS ORDERED: Ipratropium/Albuterol 3 ML NEB NEB PRN (11:15)
[2024-05-12 12:56] LABS: Influenza A by NAA Not Detected (NotDetected); Influenza B by NAA Not Detected (NotDetected); RSV by NAA Not Detected (NotDetected); SARS-CoV-2 NAA Rapid Test Not Detected (NotDetected)
[2024-05-12] MEDS: Acetaminophen 325 MG TAB PO PRN (14:32)
[2024-05-12] MEDS: Ondansetron PF 4 MG/2 ML Vial IVP PRN (16:48)
[2024-05-12] MEDS: methylPREDNISolone Sod Succ 40 MG VIAL IVP SCH (16:48)
[2024-05-12] MEDS: Ipratropium/Albuterol 3 ML NEB NEB SCH (19:21)
[2024-05-12] MEDS: traMADol HCl 50 MG TAB PO SCH (20:16)
[2024-05-12] MEDS: traZODone HCl 50 MG TAB PO SCH (20:16)
[2024-05-13] MEDS ORDERED: Aspirin Chewable 81 MG TAB PO SCH (09:00)
[2024-05-13] MEDS: Aspirin 81 mg Enteric Coated Tablet PO SCH (09:37)
[2024-05-13] MEDS: Pantoprazole DR 40 MG TAB PO SCH (09:38)
[2024-05-13] MEDS: Amiodarone 200 MG TAB PO SCH (09:38)
[2024-05-13] MEDS: Fluticasone Propionate Nasal Spray 16 gm Bottle NASAL SCH (09:38)
[2024-05-13] MEDS: Senokot S 8.6-50 MG TAB PO PRN (09:40)
[2024-05-13 16:54] VITALS: BP 150/65; TEMP 98.3
== END 2024-05-13 19:20 | disposition home health service (06) | DRG 291 ==
LOC: SUATTDRO 13:41 → ERS 13:41 → 2NO 18:02 → OBSVTOIN 05-12 16:45
PROVIDERS: ADMIT Internal Medicine; ATTEND Internal Medicine
DX: I11.0 Hypertensive heart disease with heart failure (principal); I50.33 Acute on chronic diastolic (congestive) heart failure; E78.5 Hyperlipidemia, unspecified; Z88.8 Allergy status to other drugs, medicaments and biological substances; E11.9 Type 2 diabetes mellitus without complications; Z79.899 Other long term (current) drug therapy; J45.909 Unspecified asthma, uncomplicated; Z98.890 Other specified postprocedural states; F41.9 Anxiety disorder, unspecified; F32.A Depression, unspecified
CPT/HCPCS: 0241U; 36415; 36416; 71045; 80053; 83735; 83880; 84484; 85025; 87428; 93005; 93306; 93798; 94640; 96365; 96375; J1650; J1885; J1940; J2405; J2919; J3475; J7512; J7620

== ENCOUNTER 2024-06-14 15:46 | Outpatient (CLI) | payer MEDICARE, OTHER | END 2024-06-14 15:47 | disposition home or self-care (01) | LOC: BICMAMMO 15:46 | PROVIDERS: ATTEND Family Medicine | DX: Z12.31 Encounter for screening mammogram for malignant neoplasm of breast (principal); Z78.0 Asymptomatic menopausal state; M81.0 Age-related osteoporosis without current pathological fracture | CPT/HCPCS: 77063; 77067; 77080 ==

== ENCOUNTER 2024-07-11 13:58 | Outpatient (CLI) | payer OTHER | END 2024-07-11 13:59 | disposition home or self-care (01) | LOC: BICMRI 13:58 | PROVIDERS: ATTEND Family Medicine | DX: M51.16 Intervertebral disc disorders with radiculopathy, lumbar region (principal); M47.26 Other spondylosis with radiculopathy, lumbar region; M48.061 Spinal stenosis, lumbar region without neurogenic claudication | CPT/HCPCS: 72148 ==

== ENCOUNTER 2025-05-13 13:51 | Outpatient (CLI) | payer OTHER | END 2025-05-13 13:52 | disposition home or self-care (01) | LOC: BICRAD 13:51 | PROVIDERS: ATTEND Family Medicine | DX: R07.89 Other chest pain (principal) | CPT/HCPCS: 71046 ==